=== PATIENT | male | born 1945 | race Caucasian/White ===

== ENCOUNTER 2018-06-23 09:00 | Outpatient (RCR) | payer MEDICARE, SELFPAY | END 2018-06-23 09:01 | disposition home or self-care (01) | LOC: PT 09:00 | PROVIDERS: Family Provider Internal Medicine Adolescent Medicine; PCP Internal Medicine Adolescent Medicine; Visit Provider Physician Assistant | DX: M54.12 Radiculopathy, cervical region (principal) | CPT/HCPCS: 97012; 97014; 97035; 97110; 97140; 97163; G0283 ==

== ENCOUNTER → 2018-07-10 10:42 | Outpatient (CLI) | payer MEDICARE, SELFPAY ==
--- NOTE | 2018-07-10 10:44 | MR_ITS ---
MR lumbar spine wo con, MR 3-d myelogram/MRCP HISTORY: LBP. Bilateral leg pain, numbness, tingling and weakness X 1 month. ITS.REASON: LUMBAGO WITH SCIATICA ORDERING PHYSICIAN: Magalis Negron PATIENT AGE: 73 years Comparison: None TECHNIQUE: Standard multiplanar multiecho sequences are performed without contrast. 3-D MIP and myelographic images are also rendered and reviewed FINDINGS: The spinal cord ends at the L1 level. T11-T12: Mild degenerative disc disease. T12-L1: Unremarkable. L1-L2: Mild concentric bulging disc with anterior endplate osteophytes and mild facet and ligamentum flavum hypertrophy with mild bilateral lateral recess and foraminal narrowing. L2-L3: Mild concentric bulging disc with effacement small right paracentral disc protrusion along with facet and ligamentum flavum hypertrophy with mild to moderate right lateral recess narrowing and mild left lateral recess narrowing along with mild bilateral foraminal narrowing slightly greater on the right. L3-L4: Degenerative disc disease with concentric bulging disc along with moderate to severe facet and ligamentum flavum hypertrophy with resultant canal stenosis. There is transverse narrowing of the canal measures approximately 6 mm in width. There is severe bilateral lateral recess narrowing and moderate to severe bilateral foraminal narrowing. Endplate irregularity involves the L3-L4 disc space with type I endplate changes along her aspect of L3 L4-L5: Concentric bulging disc along eccentric towards the right with facet and ligamentum flavum hypertrophy with moderate to severe right-sided lateral recess narrowing, mild left lateral recess narrowing and [id number] bilateral foraminal narrowing. L5-S1: Degenerative disc disease with mild retrolisthesis of L5 of 4 mm with bulging disc along with facet and ligamentum flavum hypertrophy with mild right foraminal narrowing and moderate to severe left foraminal narrowing. IMPRESSION: Abnormal MRI of the lumbar spine with multilevel degenerative disc disease with bulging disc along with facet and ligamentum flavum hypertrophy and varying levels of foraminal and lateral recess narrowing. This is most severe at the L3-L4 level where there is canal stenosis. Please see above for detailed description at each level No extruded herniated disc evident
== END ==
PROVIDERS: Family Provider Internal Medicine Adolescent Medicine; PCP Internal Medicine Adolescent Medicine; Visit Provider Nurse Practitioner Family
DX: M54.41 Lumbago with sciatica, right side (principal); M54.42 Lumbago with sciatica, left side
CPT/HCPCS: 72148; 76376

== ENCOUNTER 2018-09-26 08:24 | Outpatient (RCR) | payer MEDICARE, SELFPAY | END 2018-09-26 08:27 | disposition home or self-care (01) | LOC: PT 08:24 | PROVIDERS: Visit Provider Orthopaedic Surgery | DX: M25.511 Pain in right shoulder (principal); M75.111 Incomplete rotator cuff tear or rupture of right shoulder, not specified as traumatic; M75.51 Bursitis of right shoulder | CPT/HCPCS: 97014; 97035; 97163; G0283 ==

== ENCOUNTER → 2019-06-18 14:57 | Outpatient (CLI) | payer MEDICARE, SELFPAY ==
--- NOTE | 2019-06-18 15:02 | XR_ITS ---
PROCEDURE: XR ANKLE LT MIN 3V CLINICAL INDICATION: LT ANKLE PAIN COMPARISON: No exams were available for comparison FINDINGS: Bone density, joint spaces and alignment are normal. There is no acute fracture. There are vascular soft tissue calcifications. There is a 5 millimeter plantar calcaneal spur. IMPRESSION: No acute process. Calcaneal spur. Dictated by: Massimo Esteban 06/18/2019 15:16 Electronically signed by Massimo Esteban in [facility] 06/18/2019 15:16
--- NOTE | 2019-06-18 15:02 | XR_ITS ---
PROCEDURE: XR TIBIA FIBULA LT 2V CLINICAL INDICATION: LT ANKLE PAIN COMPARISON: No exams were available for comparison FINDINGS: Low-dose is normal without acute fracture. There is a curvilinear calcification adjacent to the lateral cortex of the fibular head. This is likely from ligament or tendon attachment. The cortex of the fibula is intact. IMPRESSION: No acute process. Dictated by: Massimo Esteban 06/18/2019 15:17 Electronically signed by Massimo Esteban in [facility] 06/18/2019 15:17
== END ==
PROVIDERS: PCP Internal Medicine Adolescent Medicine; Visit Provider Internal Medicine Adolescent Medicine
DX: M25.572 Pain in left ankle and joints of left foot (principal)
CPT/HCPCS: 73590; 73610

== ENCOUNTER 2019-10-07 10:37 | Observation (INO) ==
[2019-10-07 10:53] LABS: Basophils # 0.1 K/mm3 (0-0.2); Basophils % 0.4 % (0.1-2.0); Eosinophils % 15.3 % (0.1-12.0); Hematocrit 41.1 % (42.0-52.0); Hemoglobin 13.1 g/dL (14.1-18.0); Lymphocytes # 1.4 K/mm3 (0.7-4.5); Lymphocytes % 10.5 % (10-50); Mean Corpuscular HGB Conc 31.8 g/dL (31.8-35.4); Mean Corpuscular Volume 81.7 fl (80-94); Mean Platelet Volume 8.4 fl (7.4-10.4); Monocytes # 0.6 K/mm3 (0.1-1.0); Monocytes % 4.7 % (1.7-9.3); Neutrophils # 9.3 K/mm3 (1.8-7.8); Neutrophils % 69.2 % (37.0-80.0); Platelet Count 166 K/mm3 (142-424); Red Blood Count 5.03 M/mm3 (4.60-6.20); White Blood Count 13.4 K/mm3 (4.8-10.8)
--- NOTE | 2019-10-07 11:03 | Emergency Department Note ---
ED Disposition Clinical Impression: Acute exacerbation of chronic obstructive airways disease, Mild renal insufficiency, Bigeminy, First degree AV block Congestive heart failure (CHF) Qualifiers: Heart failure type: unspecified Heart failure chronicity: unspecified Qualified Code(s): I50.9 - Heart failure, unspecified Dyspnea Qualifiers: Dyspnea type: unspecified Qualified Code(s): R06.00 - Dyspnea, unspecified Disposition: Admitted as Observation Condition on Discharge: Fair (Stable) Referrals: Philip Velarde MD [Primary Care Provider] - Klever Rodas MD [Staff Physician] - Time of Disposition: 12:22 - Critical Care Critical Care Time: No Attestation: On 10/07/19, the high probability of a clinically significant, sudden or life threatening deterioration of the following system(s) required my full and direct attention, intervention and personal management. The time I documented below is in addition to time spent performing reported procedures but includes the following listed in this critical care notation. Medical Decision Making - Medical Records Medical records reviewed: Yes: I reviewed the patient's medical records. - Benja Inquiry Pt receiving controlled substance: No Benja was queried for this patient: No Vital Signs: 10/07/19 10:37 10/07/19 10:41 10/07/19 10:55 Temperature 98.4 F Temperature Source Oral Pulse Rate 93 H Pulse Rate [Right] 90 Respiratory Rate 20 Blood Pressure [Right Arm] 157/81 H Blood Pressure Mean [Right Arm] 106 Blood Pressure Source [Right Arm] Blood Pressure Position [Right Arm] 02 Sat by Pulse Oximetry 93 L Oxygen Delivery Method Room Air 10/07/19 11:07 10/07/19 11:33 10/07/19 12:00 Temperature Temperature Source Pulse Rate Pulse Rate [Right] 87 87 84 Respiratory Rate 20 20 Blood Pressure [Right Arm] 138/65 124/69 115/54 L Blood Pressure Mean [Right Arm] 89 87 74 Blood Pressure Source [Right Arm] Automatic Cuff Automatic Cuff Automatic Cuff Blood Pressure Position [Right Arm] Supine Sitting Supine 02 Sat by Pulse Oximetry 95 92 L 95 Oxygen Delivery Method Room Air Room Air Room Air 10/07/19 12:22 Temperature Temperature Source Pulse Rate Pulse Rate [Right] 88 Respiratory Rate Blood Pressure [Right Arm] 175/78 H Blood Pressure Mean [Right Arm] 110 Blood Pressure Source [Right Arm] Automatic Cuff Blood Pressure Position [Right Arm] Sitting 02 Sat by Pulse Oximetry 94 L Oxygen Delivery Method - Lab Data Lab Results 10/07/19 10:40: WBC 13.4 H, RBC 5.03, Hgb 13.1 L, Hct 41.1 L, MCV 81.7, MCH 26.0 L, MCHC 31.8, RDW 16.0, Plt Count 166, MPV 8.4, Neut % (Auto) 69.2, Lymph % (Auto) 10.5, [place] % (Auto) 4.7, Eos % (Auto) 15.3 H, Baso % (Auto) 0.4, Neut # (Auto) 9.3 H, Lymph # (Auto) 1.4, [place] # (Auto) 0.6, Eos # (Auto) 2.0 H, Baso # (Auto) 0.1 10/07/19 10:40: Sodium 139, Potassium 4.7, Chloride 101, Carbon Dioxide 24, Anion Gap 18.7 H, BUN 24 H, Creatinine 1.61 H, Estimated Creat Clear 56, Estimated GFR 42 L, Est GFR ( Amer) 51 L, Glucose 224 H, Calcium 8.7, Troponin I < 0.02 10/07/19 10:40: Total Bilirubin 1.9 H, Direct Bilirubin 0.3 H, Indirect Bilirubin 1.6 H, AST 8 L, ALT 16, Alkaline Phosphatase 53, Total Protein 6.8, Albumin 3.3 L 10/07/19 10:40: B-Natriuretic Peptide 539 H 10/07/19 10:40: Magnesium 2.0, TSH 1.33 Result diagrams: 10/07/19 10:40 10/07/19 10:40 Orders (Tests/Meds): ED MEDICATIONS Generic Name Dose Route Start Last Admin Trade Name Freq PRN Reason Stop Dose Admin Acetaminophen 650 mg 10/07/19 12:26 Acetaminophen 325mg Tab PO 11/06/19 12:25 Q4HP PRN As Needed for Fever or Pain Albuterol/Ipratropium 3 ml 10/07/19 12:30 Duoneb 3ml Neb IH 11/06/19 12:29 Q4H KALE Aspirin 81 mg 10/08/19 09:00 Aspirin 81mg Enteric Coated Tablet PO 11/07/19 08:59 DAILY KALE Carvedilol 12.5 mg 10/07/19 21:00 Coreg 25mg Tablet PO 11/06/19 20:59 BID [facility] Fluticasone Propionate 1 spr 10/07/19 21:00 Flonase 50mcg Nasal [place] 16gm NS 11/06/19 20:59 BID KALE Gabapentin 100 mg 10/07/19 13:00 Neurontin 100mg Capsule PO 11/06/19 12:59 TID KALE Levothyroxine Sodium 50 mcg 10/08/19 09:00 Synthroid 75mcg (0.075mg) Tablet PO 11/07/19 08:59 DAILY KALE Non-Formulary Medication 2 inh 10/08/19 09:00 Budesonide/Formoterol Fumarate [Symbicort 160-4.5 Mcg Inhaler] IH 11/07/19 08:59 DAILY KALE Non-Formulary Medication 1 tab 10/08/19 09:00 Dapagliflozin/Metformin Hcl [Xigduo Xr 10 Mg-1,000 Mg Tab] PO 11/07/19 08:59 DAILY KALE Non-Formulary Medication 75 mg 10/07/19 21:00 Diclofenac Sodium [Diclofenac 75mg Tab] PO 11/06/19 20:59 BID KALE Non-Formulary Medication 5 mg 10/08/19 09:00 Linagliptin [Tradjenta 5mg Tablet] PO 11/07/19 08:59 DAILY KALE Non-Formulary Medication 20 mg 10/08/19 09:00 Pantoprazole Sodium [Pantoprazole 20mg Tab] PO 11/07/19 08:59 DAILY KALE Non-Formulary Medication 1 inh 10/08/19 09:00 Umeclidinium [place] [Incruse Ellipta] 11/07/19 08:59 DAILY [facility] Ondansetron HCl 4 mg 10/07/19 12:26 Zofran 4mg/2ml Vial IV 11/06/19 12:25 Q8HP PRN Nausea Oxycodone/Acetaminophen 1 each 10/08/19 09:00 Percocet 10mg/325mg Tablet PO 11/07/19 08:59 DAILY KALE Discontinued Medications Generic Name Dose Route Start Last Admin Trade Name Freq PRN Reason Stop Dose Admin Albuterol/Ipratropium 3 ml 10/07/19 10:41 10/07/19 10:55 Duoneb 3ml Neb 10/07/19 10:42 3 ml ONCE ONE Administration Aspirin 324 mg 10/07/19 10:41 10/07/19 10:45 Aspirin 81mg Chewable Tablet PO 10/07/19 10:42 324 mg ONCE ONE Administration Furosemide 40 mg 10/07/19 11:28 10/07/19 11:31 Lasix 40mg/4ml Vial IV 10/07/19 11:29 40 mg ONCE ONE Administration Methylprednisolone Sodium Succinate 125 mg 10/07/19 10:41 10/07/19 10:46 Solu-Medrol 125mg/2ml Vial IV 10/07/19 10:42 125 mg ONCE ONE Administration Nitroglycerin 1 gm 10/07/19 11:28 10/07/19 11:31 Nitroglycerin 1 Inch Oint Udp TD 10/07/19 11:29 1 gm ONCE ONE Administration ORDERS Category Date Time Status XR chest portable Routine Exams 10/07/19 12:26 Ordered Basic Metabolic Panel AMLAB Lab 10/08/19 06:00 Ordered Complete Blood Count Auto Diff AMLAB Lab 10/08/19 06:00 Ordered Influenza A&B Antigens, Rapid [Rapid Influenza A&B Lab 10/07/19 12:30 Received Antigens] Stat Lipid Panel AMLAB Lab 10/08/19 06:00 Ordered Troponin I Q3H Lab 10/07/19 13:45 Ordered Troponin I Q3H Lab 10/07/19 16:45 Ordered - ECG Data Tracing #1 I reviewed this ECG and interpreted as documented below: (EKG at 10:36 shows sinus rhythm with 1st degree AV block at 92 BPM.) Medical Decision Narrative: 11:05 Pt evaluated. EKG reviewed. PCXR and cardiac labs ordered. DuoNeb ordered and given. 11:33 Chest x-ray reviewed which showed the patient to be developing congestive heart failure. I have ordered Lasix 40 mg IV push and 1 inch of nitroglycerin paste to anterior chest wall. I have discussed results of his labs, diagnosis and care plan with patient. I have paged Dr. Velarde and waiting for him to call back regarding admission. Pt also noted to have intermittent episodes of bigeminy. Added a TSH and magnesium to the patient's lab work-up at this time. 12:[address] Rodas youth probation officer for Dr. Velarde he is agreed to accept admission of this patient. He will follow-up with the patient later today and probably give the patient another dose of Lasix. He asked that I wr ite for strict I's and O's and did not want me to continue the nitroglycerin paste in light of his normal troponin at this time. I have discussed results of work-up, diagnosis and care plan with patient. He understands, agrees and all questions answered. Resp/SOB HPI - General Chief Complaint: Shortness of Breath/Dyspnea Stated Complaint: shortness of breath, chest tightness Time Seen by Provider: 10/07/19 11:00 Mode of Arrival: Ambulatory Source of Information: Patient Limitations: No Limitations Description of Symptoms (Recalled from ER Triage Doc. by RN): pt presents to ed with c/o shortness of breath and chest tightness. - History of Present Illness Patient is a 74-year-old male that presents here to the emergency room via private vehicle for evaluation complaining having shortness of breath. Patient states he has been having increasing dyspnea over the past 2 days. He has had a sensation of chest tightness over the past 2 days accompanied his dyspnea. Patient has had some wheezing. He has been using his home metered-dose inhalers as prescribed. Patient also states he is chronic bilateral shoulder pain. He does not have any pain into his neck back or upper extremities. No diaphoresis. No leg swelling. No recent travel or sitting for extended periods of time. - Related Data Home Medications Medication Instructions Recorded Confirmed Aspirin [Aspir 81] 81 mg PO DAILY 10/07/19 10/07/19 Budesonide/Formoterol Fumarate 2 inh IH DAILY 10/07/19 10/07/19 [Symbicort 160-4.5 Mcg Inhaler] Dapagliflozin/Metformin HCl 1 tab PO DAILY 10/07/19 10/07/19 [Xigduo Xr 10 mg-1,000 mg Tab] Diclofenac Sodium [Diclofenac 75mg 75 mg PO BID 10/07/19 10/07/19 Tab] Fluticasone Propionate 1 spray IH BID 10/07/19 10/07/19 Gabapentin [Gabapentin 100mg Cap] 100 mg PO TID 10/07/19 10/07/19 Levothyroxine Sodium 50 mcg PO DAILY 10/07/19 10/07/19 [Levothyroxine 75mcg (0.075mg) Tab] Linagliptin [Tradjenta 5mg tablet] 5 mg PO DAILY 10/07/19 10/07/19 Oxycodone HCl/Acetaminophen 1 tab PO DAILY 10/07/19 10/07/19 [Oxycodone W/Apap 325mg Tablet] Pantoprazole Sodium [Pantoprazole 20 mg PO DAILY 10/07/19 10/07/19 20mg Tab] Umeclidinium [place] [Incruse 1 inh IH DAILY 10/07/19 10/07/19 Ellipta] carvediloL [Carvedilol 25mg Tab] 12.5 mg PO BID 10/07/19 10/07/19 Allergies Allergy/AdvReac Type Severity Reaction Status Date / Time No Known Allergies Allergy Verified 10/07/19 10:[address] [facility] History - Hepatitis A Screen Drug use history?: No High risk sexual behaviors?: No History of sexually transmitted infection?: No Currently employed?: No Childcare worker?: No Do you have indoor plumbing?: Yes Do you have electricity?: Yes Attestation statement:: This patient has been screened for Hepatitis A risk factors. I have reviewed the patient's past medical history: Yes Medical History: Reports:: Diabetes Mellitus Type 2 Denies:: Diabetes Mellitus Type 1 - Social History Smoking Status: Former smoker Alcohol Intake: never Occupational Status: retired ROS Obtained: Yes All systems reviewed & no additional complaints - Constitutional Constitutional: Reports system reviewed and no additional complaints, except as docu - Eyes Eyes: Reports system reviewed and no additional complaints, except as docu - ENT Ears, Nose, Mouth, and Throat: Reports system reviewed and no additional compl aints, except as docu - Cardiovascular Cardiovascular: Reports system reviewed and no additional complaints, except as docu, Reports as per HPI, Reports dyspnea, Reports other (chest tightness) - Respiratory Respiratory: Yes system reviewed and no additional complaints, except as docu, Yes as per HPI, Yes dyspnea, Yes wheezing - Gastrointestinal Gastrointestingal: Reports: system reviewed and no additional complaints, except as docu - Genitourinary Male Genitourinary: Reports system reviewed and no additional complaints, except as docu - Musculoskeletal Musculoskeletal: Reports system reviewed and no additional complaints, except as docu - Integumentary/Breasts Skin/Breast: Reports system reviewed and no additional complaints, except as docu - Neurologic Neurologic: Reports system reviewed and no additional complaints, except as docu - Endocrine Endocrine: Reports system reviewed and no additional complaints, except as docu - Hematologic/Lymphatic Henatologic/Lymphatic: Reports system reviewed and no additional complaints, except as docu - Allergic/Immunologic Allergic/Immunologic: Reports system reviewed and no additional complaints, except as docu Physical Exam - General General appearance: alert, in no apparent distress - Head Head exam: atraumatic, normocephalic, normal inspection - Eye Eye exam: Present: normal appearance, PERRL, EOMI - ENT ENT exam: Present: mucous membranes moist, other (No otic or nasal discharge) - Neck Neck exam: Present: trachea midline - Chest Chest inspection: Present: normal inspection, symmetric chest wall rise - Respiratory Respiratory exam: Present: normal lung sounds bilaterally, wheezes (Initially had end-expiratory wheezing pre-neb. CTA bilaterally post neb.). Absent: respiratory distress - Cardiovascular Cardiovascular exam: Present: regular rate, normal heart sounds - Abdominal Exam Abdominal exam: Present: soft, normal bowel sounds. Absent: distention, tend erness, guarding, rebound, rigidity - Extremities Exam Extremities exam: Present: normal inspection, full ROM. Absent: pedal edema - Neurological Exam Neurological exam: Present: alert, oriented X3, CN II-XII intact - Psychiatric Psychiatric exam: Present: normal affect, normal mood - Skin Skin exam: Present: warm, dry, intact. Absent: rash
[2019-10-07 11:10] LABS: Anion Gap 18.7 mEq/L (5-15); Blood Urea Nitrogen 24 mg/dL (7-18); Calcium 8.7 mg/dL (8.5-10.1); Carbon Dioxide 24 mmol/L (21.0-32.0); Chloride 101 mmol/L (98-107); Glucose 224 mg/dL (74-106); Sodium 139 mmol/L (136-145)
[2019-10-07 12:03] LABS: Albumin Level 3.3 gm/dL (3.4-5.0); Bilirubin,Direct 0.3 mg/dL (0.0-0.2); Bilirubin,Indirect 1.6 mg/dL (0.0-0.9); Bilirubin,Total 1.9 mg/dL (0.2-1.0); Total Protein,Serum 6.8 gm/dL (6.4-8.2)
[2019-10-07 12:05] LABS: Thyroid Stimulating Hormone 1.33 uIU/ml (0.358-3.740)
--- NOTE | 2019-10-07 13:19 | History & Physical Report ---
*Admission Date: 10/07/19 *Chief complaint: SOA *History of present illness: Mr. Sparks is a 74-year-old gentleman with history of COPD, hypertension, chronic shoulder pain, aortic valve replacement a decade ago who presented to the ER due to worsening shortness of breath over the past 2 days. He presented with his and they report that he has been having increasing dyspnea over the past 2 days, denies orthopnea however. Does not report significant upper respiratory symptoms. He has had a sensation of chest tightness over the past 2 days accompanied his dyspnea. Patient has had some wheezing. Reports has been using his inhaler at home but this has not helped significantly. Upon presentation to the ER he was given a nebulizer treatment with no significant improvement. Labs and chest imaging were obtained showing elevated BNP, and cephalization of the pulmonary vasculature on chest x-ray. Additionally he was found to have mild GERARDO with creatinine 1.6, above baseline of 1.3. No diaphoresis, leg swelling, No recent travel or sitting for extended periods of time. In the ER was swabbed for flu, negative. On interview once he got to the floor, patient has only put out about 375 cc after his first dose of Lasix. Still short of breath but improvement in wheezing. Denies any syncope, chest pain. Has a ap operator in [place] and is adamant that if he needs any type of intervention he prefers to be under their care. [facility] History I have reviewed the patient's past medical history: Yes Medical History: Reports:: Diabetes Mellitus Type 2 Denies:: Cancer, Diabetes Mellitus Type 1, Internal Pacemaker, MRSA *Have you ever received a pneumonia vaccine?: No *Have you received a flu vaccine this season?: Yes Other Surgeries: Yes: Other Valve Replacement (Aortic valve replacement 2009). No: Pacemaker Amputation: No - *Social History Educational Level: Attended High School Smoking Status: Former smoker # Packs/Day (cigarettes): 1 Smoking End Date: 1989 Alcohol Intake: never *Occupational Status:: retired Housing: house Household Members: spouse *Travel in the last 8 weeks: None Family Hx:: No significant family history Review of Systems - Review of Systems Review of systems:: pertinent systems reviewed and negative unless documented below (14 point review of systems performed, pertinent negatives and positives as listed in HPI) Meds Home Medications Medication Instructions Recorded Confirmed Type Aspirin [Aspir 81] 81 mg PO DAILY 10/07/19 10/07/19 History Budesonide/Formoterol Fumarate 2 inh IH DAILY 10/07/19 10/07/19 History [Symbicort 160-4.5 Mcg Inhaler] Dapagliflozin/Metformin HCl 1 tab PO DAILY 10/07/19 10/07/19 History [Xigduo Xr 10 mg-1,000 mg Tab] Diclofenac Sodium [Diclofenac 75mg 75 mg PO BID 10/07/19 10/07/19 History Tab] Fluticasone Propionate 1 spray IH BID 10/07/19 10/07/19 History Gabapentin [Gabapentin 100mg Cap] 100 mg PO TID 10/07/19 10/07/19 History Levothyroxine Sodium 50 mcg PO DAILY 10/07/19 10/07/19 History [Levothyroxine 75mcg (0.075mg) Tab] Linagliptin [Tradjenta 5mg tablet] 5 mg PO DAILY 10/07/19 10/07/19 History Oxycodone HCl/Acetaminophen 1 tab PO DAILY 10/07/19 10/07/19 History [Oxycodone W/Apap 325mg Tablet] Pantoprazole Sodium [Pantoprazole 20 mg PO DAILY 10/07/19 10/07/19 History 20mg Tab] Umeclidinium [place] [Incruse 1 inh IH DAILY 10/07/19 10/07/19 History Ellipta] carvediloL [Carvedilol 25mg Tab] 12.5 mg PO BID 10/07/19 10/07/19 History Allergies Allergy/AdvReac Type Severity Reaction Status Date / Time No Known Allergies Allergy Verified 10/07/19 10:40 Exam Vital signs and Labs for Last 24 Hours: Temp Pulse Resp BP Pulse Ox 97.7 F 82 20 141/74 H 95 10/07/19 13:07 10/07/19 13:07 10/07/19 13:07 10/07/19 13:07 10/07/19 13:07 Laboratory Results - last 24 hr 10/07/19 10:40: WBC 13.4 H, RBC 5.03, Hgb 13.1 L, Hct 41.1 L, MCV 81.7, MCH 26.0 L, MCHC 31.8, RDW 16.0, Plt Count 166, MPV 8.4, Neut % (Auto) 69.2, Lymph % (Auto) 10.5, [place] % (Auto) 4.7, Eos % (Auto) 15.3 H, Baso % (Auto) 0.4, Neut # (Auto) 9.3 H, Lymph # (Auto) 1.4, [place] # (Auto) 0.6, Eos # (Auto) 2.0 H, Baso # (Auto) 0.1 10/07/19 10:40: Sodium 139, Potassium 4.7, Chloride 101, Carbon Dioxide 24, Anion Gap 18.7 H, BUN 24 H, Creatinine 1.61 H, Estimated Creat Clear 56, Estimated GFR 42 L, Est GFR ( Amer) 51 L, Glucose 224 H, Calcium 8.7, Troponin I < 0.02 10/07/19 10:40: Total Bilirubin 1.9 H, Direct Bilirubin 0.3 H, Indirect Bilirubin 1.6 H, AST 8 L, ALT 16, Alkaline Phosphatase 53, Total Protein 6.8, Albumin 3.3 L 10/07/19 10:40: B-Natriuretic Peptide 539 H 10/07/19 10:40: Magnesium 2.0, TSH 1.33 10/07/19 12:30: Influenza Type A Ag Negative, Influenza Type B Ag Negative I & O for Last 24 hours: Intake & Output 10/04/19 10/05/19 10/06/19 10/07/19 23:59 23:59 23:59 23:59 Weight 87.572 kg - Constitutional mild distress, average body habitus - *Routine HEENT Exam Head: Present: normocephalic Eye: Present: EOMI, PERRL ENT: Present: mucous membranes moist - *Routine Neck Exam Present: supple, JVD. Absent: lymphadenopathy - *Routine Respiratory Exam Present: CTA bilaterally, prolonged expiratory phase, rhonchi (Intermittent, clear with cough). Absent: wheezes - *Routine Cardiovascular Exam Absent: murmur Comments: Arrhythmia on exam, bigeminy on telemetry - *Routine Abdominal Exam Present: soft, normoactive bowel sounds. Absent: tenderness - *Routine Extremities Exam Absent: cyanosis, clubbing, edema - *Routine Skin Exam Present: warm. Absent: rash - *Routine Neurological Exam Present: alert, oriented X3 - Routine Psychiatric Exam Present: normal affect, cooperative Assessment and Plan (1) Congestive heart failure (CHF) Current visit: Yes Status: Acute Qualifiers: Heart failure type: unspecified Heart failure chronicity: unspecified Qualified Code(s): I50.9 - Heart failure, unspecified Category: Medical Code(s): I50.9 - Heart failure, unspecified Cannot find history of echocardiogram however patient reports has had one obtained but is been many many years. Will obtain another echo in the morning to assess for diastolic vs systolic vs combined CHF. Cardiology consulted as we ll, appreciate recommendations. (2) Dyspnea Current visit: Yes Status: Acute Qualifiers: Dyspnea type: unspecified Qualified Code(s): R06.00 - Dyspnea, unspecified Category: Medical Code(s): R06.00 - Dyspnea, unspecified (3) Mild renal insufficiency Current visit: Yes Status: Acute Category: Medical Code(s): N28.9 - Disorder of kidney and ureter, unspecified Baseline creatinine 1.3, will monitor for improvement with diuresis. Repeat labs this evening and in the morning (4) COPD (chronic obstructive pulmonary disease) Current visit: Yes Status: Chronic Qualifiers: Chronic bronchitis type: simple Category: Medical Code(s): J44.9 - Chronic obstructive pulmonary disease, unspecified Continue home inhalers, nebs every 6 as needed (5) Bigeminy Current visit: Yes Status: Chronic Category: Medical Code(s): I49.9 - Cardiac arrhythmia, unspecified Continue beta-sabrina. - Assessment and plan all Dx Assessment and Plan for all problems:: 74-year-old gentleman who presents with 2 days of worsening dyspnea. Imaging and labs suggestive of CHF exacerbation. No overt signs of infection even in the setting of mild leukocytosis. Will hold on empiric antibiotics at this time. Continue treatment for COPD. Diuresis as discussed above. Will monitor kidney function, electrolytes, fluid status and for improvement with diuresis. Cardiology consulted, will see patient in the morning. Appreciate their recommendations. Echo pending in the morning. Patient full code, diabetic diet. Sliding scale insulin for diabetes. Will observe overnight and assess for response to treatment.
--- NOTE | 2019-10-07 14:25 | Pharmacy Consult Notes ---
[facility] Pharmacy VTE Monitoring - Patient Demographics Admission date: 10/07/19 Report Date: 10/07/19 Time: 14:25 Allergies/Adverse Reactions: Patient Allergies No Known Allergies Allergy (Verified 10/07/19 10:40) Height: 1.88 m Weight: 87.572 kg Patient Problems: Current Active Problems Congestive heart failure (CHF) (Acute) Dyspnea (Acute) Acute exacerbation of chronic obstructive airways disease (Acute) Mild renal insufficiency (Acute) Bigeminy (Acute) First degree AV block (Acute) - VTE Risk Labs: VTE Related Lab Results Hgb 13.1 g/dL (14.1-18.0) L 10/07/19 10:40 Hct 41.1 % (42.0-52.0) L 10/07/19 10:40 Plt Count 166 K/mm3 (142-424) 10/07/19 10:40 BUN 24 mg/dL (7-18) H 10/07/19 10:40 Creatinine 1.61 mg/dL (0.70-1.30) H 10/07/19 10:40 Estimated Creat Clear 56 mL/min (50-200) 10/07/19 10:40 Was VTE Risk Assessment Performed: Yes VTE Score: 4 VTE Risk Level: Low Risk - Prophylaxis VTE Prophylaxis Ordered?: Yes Types of VTE Prophylaxis: TEDS Knee High Location of Applied Device: Bilateral Lower Extremeties, Not Applicable
[2019-10-08 00:17] LABS: Anion Gap 15.9 mEq/L (5-15)
[2019-10-08 06:19] LABS: Basophils % 0.3 % (0.1-2.0); Eosinophils # 0.5 K/mm3 (0.0-0.4); Eosinophils % 3.8 % (0.1-12.0); Hematocrit 40.4 % (42.0-52.0); Hemoglobin 12.8 g/dL (14.1-18.0); Lymphocytes # 2.5 K/mm3 (0.7-4.5); Lymphocytes % 18.6 % (10-50); Mean Corpuscular HGB Conc 31.6 g/dL (31.8-35.4); Mean Corpuscular Volume 80.9 fl (80-94); Mean Platelet Volume 8.9 fl (7.4-10.4); Monocytes # 0.7 K/mm3 (0.1-1.0); Monocytes % 5.6 % (1.7-9.3); Neutrophils # 9.6 K/mm3 (1.8-7.8); Neutrophils % 71.7 % (37.0-80.0); Platelet Count 176 K/mm3 (142-424); Red Cell Distribution Width 15.9 % (11.5-17.5); White Blood Count 13.4 K/mm3 (4.8-10.8)
[2019-10-08 06:32] LABS: Calcium 9.1 mg/dL (8.5-10.1); Chol/HDL Ratio 3.3 (1-3.5)
--- NOTE | 2019-10-08 08:53 | Discharge Summary ---
General - General Admission date:: 10/07/19 Discharge date: 10/08/19 HPI HPI: Mr. Sparks is a 74-year-old gentleman with history of COPD, hypertension, chronic shoulder pain, aortic valve replacement a decade ago who presented to the ER due to worsening shortness of breath over the past 2 days. He presented with his and they report that he has been having increasing dyspnea over the past 2 days, denies orthopnea however. Does not report significant upper respiratory symptoms. He has had a sensation of chest tightness over the past 2 days accompanied his dyspnea. Patient has had some wheezing. Reports has been using his inhaler at home but this has not helped significantly. Upon presentation to the ER he was given a nebulizer treatment with no significant improvement. Labs and chest imaging were obtained showing elevated BNP, and cephalization of the pulmonary vasculature on chest x-ray. Additionally he was found to have mild GERARDO with creatinine 1.6, above baseline of 1.3. No diaphoresis, leg swelling, No recent travel or sitting for extended periods of time. In the ER was swabbed for flu, negative. On interview once he got to the floor, patient has only put out about 375 cc after his first dose of Lasix. Still short of breath but improvement in wheezing. Denies any syncope, chest pain. Has a lead applications developer in [place] and is adamant that if he needs any type of intervention he prefers to be under their care. Hospital Course Hospital Course: Patient was admitted to hospital and received a dose of IV Lasix on admission. He did well with this and had quite a bit of urine output. He felt much better. This morning he feels much better, denies shortness of air and is ambulating in the hallways very nicely. Preliminary echo report showed that his porcine valve is functioning very nicely and his ejection fraction is 55% with no significant wall motion abnormalities on preliminary review. Unfortunately patient's acute kidney injury has worsened slightly with creat inine rising from 2.6 up to 2.3 and then this morning plateauing somewhat at 2.5. Patient reports that he feels well, no nausea, and has had good urine output this morning. He reports that he is drinking well and had coffee and orange juice and water for breakfast without nausea. Patient wishes to be discharged and have outpatient follow-up which I think is reasonable given his close proximity to the hospital and his good functional status. Electrolytes are also normal. Plan will be to discharge patient today. No additional medications-I had considered adding diuretics but patient may have had a viral bronchitis rather than an actual CHF exacerbation given his fluid status this morning. I have asked patient to hold his diclofenac and he will come back tomorrow for a basic metabolic panel and CBC. I will then see him in the office on Tuesday and review these tests. Objective Vital signs: Temp Pulse Resp BP Pulse Ox 98.7 F 67 20 133/45 L 93 L 10/08/19 08:00 10/08/19 08:00 10/08/19 08:00 10/08/19 08:00 10/08/19 08:00 Narrative: Pleasant, alert, oriented x3. No peripheral edema. No JVD. No scleral icterus or jaundice. Lungs are clear bilaterally. Heart rate regular with rare ectopic beat. Previously noted holosystolic murmur is unchanged. Abdomen soft and nontender. No skin turgor problems. Neurologically intact and alert. Results Labs on day of discharge: Labs from last 24 hours 10/08/19 10/08/19 10/08/19 05:57 05:55 05:55 WBC 13.4 H RBC 5.00 Hgb 12.8 L Hct 40.4 L MCV 80.9 MCH 25.5 L MCHC 31.6 L RDW 15.9 Plt Count 176 MPV 8.9 Neut % (Auto) 71.7 Lymph % (Auto) 18.6 Guadalupe % (Auto) 5.6 Eos % (Auto) 3.8 Baso % (Auto) 0.3 Neut # (Auto) 9.6 H Lymph # (Auto) 2.5 [place]upe # (Auto) 0.7 Eos # (Auto) 0.5 H Baso # (Auto) 0.0 Sodium 136 Potassium 4.0 Chloride 99 Carbon Dioxide 26 Anion Gap 15.0 BUN 46 H Creatinine 2.53 H Estimated Creat Clear 31 Estimated GFR 25 L Est GFR ( Amer) 30 L Glucose 200 H POC Glucose 199 H Calcium 9.1 Magnesium Total Bilirubin Direct Bilirubin Indirect Bilirubin AST ALT Alkaline Phosphatase Troponin I B-Natriuretic Peptide Total Protein Albumin Triglycerides 89 Cholesterol 139 L LDL Cholesterol 79 VLDL Cholesterol 18 HDL Cholesterol 42 Cholesterol/HDL Ratio 3.3 TSH Influenza Type A Ag Influenza Type B Ag 10/07/19 10/07/1920 23:59 21:25 16:12 WBC RBC Hgb Hct MCV MCH MCHC RDW Plt Count MPV Neut % (Auto) Lymph % (Auto) Gu[place]upe % (Auto) Eos % (Auto) Baso % (Auto) Neut # (Auto) Lymph # (Auto) [place]upe # (Auto) Eos # (Auto) Baso # (Auto) Sodium 136 Potassium 3.9 Chloride 99 Carbon Dioxide 25 Anion Gap 15.9 H BUN 40 H D Creatinine 2.31 H D Estimated Creat Clear 34 Estimated GFR 28 L Est GFR ( Amer) 34 L D Glucose 226 H POC Glucose 316 H* 398 H* Calcium 9.0 Magnesium Total Bilirubin Direct Bilirubin Indirect Bilirubin AST ALT Alkaline Phosphatase Troponin I B-Natriuretic Peptide Total Protein Albumin Triglycerides Cholesterol LDL Cholesterol VLDL Cholesterol HDL Cholesterol Cholesterol/HDL Ratio TSH Influenza Type A Ag Influenza Type B Ag 10/07/19 10/07/19 10/07/19 13:45 12:30 10:40 WBC RBC Hgb Hct MCV MCH MCHC RDW Plt Count MPV Neut % (Auto) Lymph % (Auto) Gu[place]upe % (Auto) Eos % (Auto) Baso % (Auto) Neut # (Auto) Lymph # (Auto) [place]upe # (Auto) Eos # (Auto) Baso # (Auto) Sodium Potassium Chloride Carbon Dioxide Anion Gap BUN Creatinine Estimated Creat Clear Estimated GFR Est GFR ( Amer) Glucose POC Glucose Calcium Magnesium 2.0 Total Bilirubin Direct Bilirubin Indirect Bilirubin AST ALT Alkaline Phosphatase Troponin I < 0.02 B-Natriuretic Peptide Total Protein Albumin Triglycerides Cholesterol LDL Cholesterol VLDL Cholesterol HDL Cholesterol Cholesterol/HDL Ratio TSH 1.33 Influenza Type A Ag Negative Influenza Type B Ag Negative 10/07/19 10/07/19 10/07/19 10:40 10:40 10:40 WBC RBC Hgb Hct MCV MCH MCHC RDW Plt Count MPV Neut % (Auto) Lymph % (Auto) [place]upe % (Auto) Eos % (Auto) Baso % (Auto) Neut # (Auto) Lymph # (Auto) [place]upe # (Auto) Eos # (Auto) Baso # (Auto) Sodium 139 Potassium 4.7 Chloride 101 Carbon Dioxide 24 Anion Gap 18.7 H BUN 24 H Creatinine 1.61 H Estimated Creat Clear 56 Estimated GFR 42 L Est GFR ( Amer) 51 L Glucose 224 H POC Glucose Calcium 8.7 Magnesium Total Bilirubin 1.9 H Direct Bilirubin 0.3 H Indirect Bilirubin 1.6 H AST 8 L ALT 16 Alkaline Phosphatase 53 Troponin I < 0.02 B-Natriuretic Peptide 539 H Total Protein 6.8 Albumin 3.3 L Triglycerides Cholesterol LDL Cholesterol VLDL Cholesterol HDL Cholesterol Cholesterol/HDL Ratio TSH Influenza Type A Ag Influenza Type B Ag 10/07/19 10:40 WBC 13.4 H RBC 5.03 Hgb 13.1 L Hct 41.1 L MCV 81.7 MCH 26.0 L MCHC 31.8 RDW 16.0 Plt Count 166 MPV 8.4 Neut % (Auto) 69.2 Lymph % (Auto) 10.5 Gu[place]upe % (Auto) 4.7 Eos % (Auto) 15.3 H Baso % (Auto) 0.4 Neut # (Auto) 9.3 H Lymph # (Auto) 1.4 [place]upe # (Auto) 0.6 Eos # (Auto) 2.0 H Baso # (Auto) 0.1 Sodium Potassium Chloride Carbon Dioxide Anion Gap BUN Creatinine Estimated Creat Clear Estimated GFR Est GFR ( Amer) Glucose POC Glucose Calcium Magnesium Total Bilirubin Direct Bilirubin Indirect Bilirubin AST ALT Alkaline Phosphatase Troponin I B-Natriuretic Peptide Total Protein Albumin Triglycerides Cholesterol LDL Cholesterol VLDL Cholesterol HDL Cholesterol Cholesterol/HDL Ratio TSH Influenza Type A Ag Influenza Type B Ag DS: Diagnosis - Discharge Diagnosis (1) Congestive heart failure (CHF) Status: Chronic (2) Dyspnea Status: Resolved (3) Mild renal insufficiency Status: Acute (4) COPD (chronic obstructive pulmonary disease) Status: Chronic (5) Bigeminy Status: Chronic Discharge Plan - Patient Discharge Instructions ACTIVITY: Continue current activity DIET: continue same diet - Follow up Plan Follow up with: Philip Velarde MD [Primary Care Provider] - 10/10/19 10:15 am Disposition: Home, Self-Correction Medications: Home Medications Medication Instructions Recorded Confirmed Type Aspirin [Aspir 81] 81 mg PO DAILY 10/07/19 10/07/19 History Budesonide/Formoterol Fumarate 2 inh IH DAILY 10/07/19 10/07/19 History [Symbicort 160-4.5 Mcg Inhaler] Dapagliflozin/Metformin HCl 1 tab PO DAILY 10/07/19 10/07/19 History [Xigduo Xr 10 mg-1,000 mg Tab] Diclofenac Sodium [Diclofenac 75mg 75 mg PO BID 10/07/19 10/07/19 History Tab] Fluticasone Propionate 2 spray IH DAILY 10/07/19 10/07/19 History Gabapentin [Gabapentin 100mg Cap] 100 mg PO TID 10/07/19 10/07/19 History Levothyroxine Sodium 50 mcg PO DAILY 10/07/19 10/07/19 History [Levothyroxine 75mcg (0.075mg) Tab] Linagliptin [Tradjenta 5mg tablet] 5 mg PO DAILY 10/07/19 10/07/19 History Oxycodone HCl/Acetaminophen 1 tab PO DAILY 10/07/19 10/07/19 History [Oxycodone W/Apap 325mg Tablet] Pantoprazole Sodium [Pantoprazole 40 mg PO DAILY 10/07/19 10/07/19 History 20mg Tab] Umeclidinium [place] [Incruse 1 inh IH DAILY 10/07/19 10/07/19 History Ellipta] carvediloL [Carvedilol 25mg Tab] 12.5 mg PO BID 10/07/19 10/07/19 History Prescriptions/Medication Reconciliation: Continued Pantoprazole Sodium [Pantoprazole 20mg Tab] 40 mg PO DAILY Linagliptin [Tradjenta 5mg tablet] 5 mg PO DAILY Levothyroxine Sodium [Levothyroxine 75mcg (0.075mg) Tab] 50 mcg PO DAILY carvediloL [Carvedilol 25mg Tab] 12.5 mg PO BID Gabapentin [Gabapentin 100mg Cap] 100 mg PO TID Fluticasone Propionate 2 spray IH DAILY Oxycodone HCl/Acetaminophen [Oxycodone W/Apap 325mg Tablet] 1 tab PO DAILY Budesonide/Formoterol Fumarate [Symbicort 160-4.5 Mcg Inhaler] 2 inh IH DAILY Umeclidinium [place] [Incruse Ellipta] 1 inh IH DAILY Dapagliflozin/Metformin HCl [Xigduo Xr 10 mg-1,000 mg Tab] 1 tab PO DAILY Aspirin [Aspir 81] 81 mg PO DAILY Discontinued Diclofenac Sodium [Diclofenac 75mg Tab] 75 mg PO BID Other Amb Orders: B-Type Natriuretic Peptide Time Frame: 10/09/19, Location: None Selected Basic Metabolic Panel Time Frame: 10/09/19, Location: None Selected Complete Blood Count Auto Diff Time Frame: 10/09/19, Location: None Selected - Problem Reconciliation Problems Reviewed?: Yes
--- NOTE | 2019-10-08 12:54 | Electrocardiograph Report ---
APPROVED REPORT Exam: Resting ECG HR:92 bpm ECG Measurements Heart Rate 92 AXES PA 214 P 69 QRSd 86 QRS 21 QT 342 T71 QTc 422 <Conclusion> Sinus rhythm with 1st degree AV block Otherwise normal ECG Electronically signed by : Gerardo Arboleda, 10/08/2019 12:54:03
--- NOTE | 2019-10-08 18:49 | Cardiology Report ---
APPROVED REPORT EXAM: Comprehensive 2D, Doppler, and color-flow Echocardiogram Seal Mixer: Gardenia Erazo CRT Ht: 6 ft 2 in Wt: 193lbs BSA: 2.14 BP: 141/74 mmHg Indications: Prosthetic aortic porcine Valve, Arrhythmia, Congestive Heart Failure, Shortness of Breath, CAD 2D Dimensions LVOT 1.91 cm (M/F) 1.5-2.5 M-Mode Dimensions RVDd 2.84 cm (0.9-2.6)LVDd 4.81 cm (3.5-5.7) LVDs 3.44 cm (3.5-5.7)IVSd 1.36 cm (0.6-1.1) PWd 0.84 cm (0.6-1.1)EF (Teich) 54.80% FS 28.50% EDV (Teich) 108.00 mL ESV (Teich) 48.80 mL LV Diastology E/A Ratio 0.50 Aortic Valve LVOT Max 94.00 (70-110 cm/s)LVOT VTI 18.55 cm Mitral Valve MV A Velocity 102.00 (40-130 cm/s) Left Ventricle Left atrium is moderately enlarged, left ventricle is normal size, mild concentric left ventricular hypertrophy, visually estimated ejection fraction 55% with no regional wall motion abnormality. Grade 1 diastolic dysfunction seen with tissue Doppler evidence of raise left atrial pressure. Right Ventricle Right atrium right ventricular normal size and contractility. Aortic Valve There is a bioprosthetic valve noted in the aortic position, the valve is well-seated, there is no aortic outflow obstruction or aortic insufficiency. Mitral Valve Mitral valve has mitral calcification, there is prolapse of the posterior mitral leaflet, there is no mitral stenosis, there is mitral regurgitation present which is difficult to quantify, if clinically indicated a transesophageal echocardiogram is recommended. Tricuspid Valve Tricuspid valve is grossly normal, there is mild tricuspid regurgitation. Tricuspid regurgitation jet velocity is inadequate for calculation of the right ventricular systolic pressure. Pulmonic Valve Pulmonic valve is poorly visualized. There is moderate pulmonic insufficiency. Great Vessels Aortic root is normal size. Pericardium No significant pericardial effusion noted. Conclusion 1. Moderately enlarged left atrium, normal left ventricular size, mild concentric left ventricular hypertrophy, visually estimated ejection fraction of 55% with no regional wall motion abnormality, grade 1 diastolic dysfunction seen with tissue Doppler evidence of raise left atrial pressure. 2. Normal functioning bioprosthetic valve in the aortic position. 3. Abnormal mitral valve as described above, there is no mitral stenosis, there is mitral regurgitation present which is difficult to quantify, if clinically indicated a transesophageal echocardiogram is recommended. 4. Mild tricuspid regurgitation. 5. No significant pericardial effusion noted. Electronically signed by : Mil Ross, 10/08/2019 18:48:28
== END 2019-10-08 10:00 | disposition home or self-care (01) ==
LOC: 2ND 10:37 → ER 10:37 → 2ND 12:55
PROVIDERS: ADMIT Internal Medicine Adolescent Medicine; ATTEND Internal Medicine Adolescent Medicine
CPT/HCPCS: 36415; 71020; 71046; 80048; 80061; 80076; 82962; 83735; 83880; 84443; 84484; 85025; 87275; 87276; 93005; 93306; 94640; 96374; 96375; 99284; G0378

== ENCOUNTER → 2019-10-09 09:50 | Outpatient (CLI) | payer MEDICARE, SELFPAY ==
[2019-10-09 10:10] LABS: Basophils # 0.1 K/mm3 (0-0.2); Basophils % 0.7 % (0.1-2.0); Eosinophils # 3.1 K/mm3 (0.0-0.4); Eosinophils % 26.1 % (0.1-12.0); Hematocrit 42.7 % (42.0-52.0); Hemoglobin 13.3 g/dL (14.1-18.0); Lymphocytes # 2.5 K/mm3 (0.7-4.5); Lymphocytes % 21.1 % (10-50); Mean Corpuscular HGB Conc 31.1 g/dL (31.8-35.4); Mean Corpuscular Hemoglobin 26.1 pg (27.0-31.2); Mean Platelet Volume 8.8 fl (7.4-10.4); Monocytes # 0.6 K/mm3 (0.1-1.0); Monocytes % 4.6 % (1.7-9.3); Neutrophils # 5.6 K/mm3 (1.8-7.8); Neutrophils % 47.5 % (37.0-80.0); Platelet Count 197 K/mm3 (142-424); Red Blood Count 5.08 M/mm3 (4.60-6.20); Red Cell Distribution Width 16.4 % (11.5-17.5); White Blood Count 11.8 K/mm3 (4.8-10.8)
[2019-10-09 11:05] LABS: Anion Gap 17.4 mEq/L (5-15); Blood Urea Nitrogen 49 mg/dL (7-18); Carbon Dioxide 27 mmol/L (21.0-32.0); Chloride 103 mmol/L (98-107); Creatinine,Serum 2.06 mg/dL (0.70-1.30); Estimated Glomerular Filt Rate 32 ml/min (>60); GFR (African American) 38 ML/MIN (>60); Glucose 213 mg/dL (74-106); Potassium 4.4 mmoL/L (3.5-5.1); Sodium 143 mmol/L (136-145)
== END ==
PROVIDERS: Visit Provider Internal Medicine Adolescent Medicine
DX: I50.9 Heart failure, unspecified (principal)
CPT/HCPCS: 36415; 80048; 83880; 85025

== ENCOUNTER → 2019-10-10 11:43 | Outpatient (CLI) | payer MEDICARE, SELFPAY ==
[2019-10-10 13:50] LABS: Anion Gap 14.6 mEq/L (5-15); Blood Urea Nitrogen 35 mg/dL (7-18); Calcium 8.8 mg/dL (8.5-10.1); Carbon Dioxide 28 mmol/L (21.0-32.0); Chloride 106 mmol/L (98-107); Creatinine,Serum 1.72 mg/dL (0.70-1.30); Estimated Glomerular Filt Rate 39 ml/min (>60); GFR (African American) 47 ML/MIN (>60); Glucose 193 mg/dL (74-106); Potassium 4.6 mmoL/L (3.5-5.1); Sodium 144 mmol/L (136-145)
== END ==
PROVIDERS: Visit Provider Internal Medicine Adolescent Medicine
DX: N17.9 Acute kidney failure, unspecified (principal)
CPT/HCPCS: 36415; 80048

== ENCOUNTER → 2019-11-07 11:07 | Outpatient (CLI) | payer MEDICARE, SELFPAY ==
[2019-11-07 12:28] LABS: Chloride 101 mmol/L (98-107)
[2019-11-07 12:29] LABS: Potassium 4.6 mmoL/L (3.5-5.1); Sodium 139 mmol/L (136-145)
[2019-11-07 12:30] LABS: Hemoglobin A1C 8.7 % (4.0-6.0)
[2019-11-07 12:31] LABS: Alanine Aminotransferase 14 U/L (12-78); Albumin/Globulin Ratio 1.3 (1.1-1.8); Alkaline Phosphatase 52 U/L (38-126); Anion Gap 13.6 mEq/L (5-15); Aspartate Amino Transferase 21 U/L (17-59); Bilirubin,Total 1.1 mg/dl (0.2-1.3); Blood Urea Nitrogen 25 mg/dl (9-20); Carbon Dioxide 29 mmol/L (22.0-30.0); Estimated Glomerular Filt Rate 46 ml/min (>60); GFR (African American) 55 ML/MIN (>60); Globulin 3.1 g/dL (1.3-3.2); Total Protein,Serum 7.1 g/dl (6.3-8.2)
[2019-11-07 12:32] LABS: Calcium 9.5 mg/dl (8.4-10.2); Glucose 175 mg/dl (74-100)
== END ==
PROVIDERS: Visit Provider Internal Medicine Adolescent Medicine
DX: E11.9 Type 2 diabetes mellitus without complications (principal); N17.9 Acute kidney failure, unspecified
CPT/HCPCS: 36415; 80053; 83036

== ENCOUNTER → 2020-01-30 10:35 | Outpatient (CLI) | payer MEDICARE, SELFPAY ==
--- NOTE | 2020-01-30 10:51 | XR_ITS ---
PROCEDURE: XR FOOT RT MIN 3V CLINICAL INDICATION: RT GREAT TOE PAIN Posttraumatic pain COMPARISON: No exams were available for comparison FINDINGS: There are mild osteoarthritic changes of the 1st metatarsophalangeal joint with mild hallux valgus and bunion formation. There is a vague oblique lucency through the proximal phalanx of the great toe. This is only identified on AP view and may be due to a groove within the proximal phalanx. Nondisplaced subacute fracture is also considered. No other significant anomalies are evident. IMPRESSION: Possible nondisplaced oblique subacute fracture through the proximal phalanx of the great toe. Please correlate with physical exam. Dictated by: Toby Chua MD 01/30/2020 11:31 Electronically signed by Toby Chua MD in [place] 01/30/2020 11:31
== END ==
PROVIDERS: PCP Internal Medicine Adolescent Medicine; Visit Provider Internal Medicine Adolescent Medicine
DX: M79.674 Pain in right toe(s) (principal)
CPT/HCPCS: 73630

== ENCOUNTER → 2020-02-25 09:14 | Outpatient (CLI) | payer MEDICARE, SELFPAY ==
--- NOTE | 2020-02-25 09:23 | XR_ITS ---
PROCEDURE: XR FOOT WT BEARING RT 3V CLINICAL INDICATION: fracture follow up COMPARISON: XR FOOT RT MIN 3V from 01/30/2020 FINDINGS: Healing oblique fracture involves the proximal phalanx of the great toe. Fracture line is less well-defined and nondisplaced. There are mild osteoarthritic changes of the 1st MTP joint. There is mild pes planus and there are mild degenerative changes at the talonavicular joint. There is a prominent bony spur along the dorsal and distal aspect of the 1st metatarsal. Generalized vascular calcification noted. Other findings:None. IMPRESSION: Healing fracture of the proximal phalanx of the great toe with degenerative changes and pes planus Dictated by: Toby Chua MD 02/25/2020 13:59 Electronically signed by Toby Chua MD in [place] 02/25/2020 13:59
== END ==
PROVIDERS: PCP Internal Medicine Adolescent Medicine; Visit Provider Podiatrist
DX: T14.8XXA Other injury of unspecified body region, initial encounter (principal); S92.414D Nondisplaced fracture of proximal phalanx of right great toe, subsequent encounter for fracture with routine healing
CPT/HCPCS: 73630

== ENCOUNTER → 2020-03-26 11:06 | Outpatient (CLI) | payer MEDICARE, SELFPAY ==
--- NOTE | 2020-03-26 11:08 | XR_ITS ---
PROCEDURE: XR FOOT WT BEARING RT 3V CLINICAL INDICATION: fracture follow up COMPARISON: XR FOOT RT MIN 3V from 01/30/2020 XR FOOT WT BEARING RT 3V from 02/25/2020 FINDINGS: There is a healing fracture of the proximal phalanx of the great toe with good alignment. There is mild pes planus with mild osteoarthritic change of the talonavicular joint and 1st metatarsophalangeal joint. There is generalized vascular calcification. IMPRESSION: Healing fracture of the great toe with osteoarthritic changes and pes planus Dictated by: Toby Chua MD 03/26/2020 14:13 Electronically signed by Toby Chua MD in [place] 03/26/2020 14:13
== END ==
PROVIDERS: PCP Internal Medicine Adolescent Medicine; Visit Provider Podiatrist
DX: S92.401D Displaced unspecified fracture of right great toe, subsequent encounter for fracture with routine healing (principal)
CPT/HCPCS: 73630

== ENCOUNTER → 2020-04-22 08:52 | Outpatient (CLI) | payer MEDICARE, SELFPAY ==
--- NOTE | 2020-04-22 09:02 | XR_ITS ---
PROCEDURE: XR FOOT WT BEARING RT 3V CLINICAL INDICATION: fracture follow up. At COMPARISON: CR XR FOOT RT MIN 3V from 01/30/2020 CR XR FOOT WT BEARING RT 3V from 02/25/2020 CR XR FOOT WT BEARING RT 3V from 03/26/2020 FINDINGS: No change nondisplaced fracture proximal phalanx 1st digit. Osteoarthritic changes 1st metatarsophalangeal junction. Borderline pes planus. Generalized vascular calcification. IMPRESSION: No change Dictated b Toby Chua MD 04/22/2020 15:38 Toby Chua MD in [place] 04/22/2020 15:38
== END ==
PROVIDERS: PCP Internal Medicine Adolescent Medicine; Visit Provider Podiatrist
DX: M79.673 Pain in unspecified foot (principal)
CPT/HCPCS: 73630

== ENCOUNTER → 2020-10-21 11:20 | Outpatient (CLI) | payer MEDICARE, SELFPAY ==
--- NOTE | 2020-10-21 11:29 | XR_ITS ---
PROCEDURE: XR FOOT WT BEARING RT 3V CLINICAL INDICATION: great toe pain COMPARISON: CR XR FOOT RT MIN 3V from 01/30/2020 CR XR FOOT WT BEARING RT 3V from 02/25/2020 CR XR FOOT WT BEARING RT 3V from 03/26/2020 CR XR FOOT WT BEARING RT 3V from 04/22/2020 FINDINGS: No fracture or dislocation. No lytic or blastic change. There is normal mineralization. Osteoarthritic changes are present at the 1st metatarsophalangeal joint with mild hypertrophy of the distal aspect of the 1st metatarsal and prominent bony spur along the dorsal and distal aspect of the 1st metatarsal. There is pes planus. There is generalized vascular calcification. Osteoarthritic changes are present at the talonavicular joint. Other findings:None. IMPRESSION: Osteoarthritic changes as described above with pes planus Dictated by: Toby Chua MD 10/21/2020 13:01 Toby Chua MD in [place] 10/21/2020 13:01
== END ==
PROVIDERS: PCP Internal Medicine Adolescent Medicine; Visit Provider Podiatrist
DX: T14.8XXA Other injury of unspecified body region, initial encounter (principal); S92.414D Nondisplaced fracture of proximal phalanx of right great toe, subsequent encounter for fracture with routine healing
CPT/HCPCS: 73630

== ENCOUNTER → 2020-12-25 10:45 | Outpatient (CLI) | payer MEDICARE, SELFPAY ==
--- NOTE | 2020-12-25 10:49 | XR_ITS ---
PROCEDURE: XR FOOT WT BEARING RT 3V CLINICAL INDICATION: foot pain COMPARISON: CR XR FOOT WT BEARING RT 3V from 02/25/2020 CR XR FOOT WT BEARING RT 3V from 03/26/2020 CR XR FOOT WT BEARING RT 3V from 04/22/2020 CR XR FOOT WT BEARING RT 3V from 10/21/2020 FINDINGS: There is now evidence a nondisplaced fracture involving the proximal aspect of the distal phalanx of the great toe Mild osteoarthritic change noted the 1st metatarsophalangeal junction. Prominent bony spurring is present along the dorsal and distal aspect of the 1st metatarsal. There is pes planus with mild osteoarthritic change at the talus/navicular joint. There is generalized vascular calcification. Other findings:None. IMPRESSION: Nondisplaced fracture distal phalanx great toe Degenerative changes Dictated by: Toby Chua MD 12/25/2020 12:56 Toby Chua MD in [place] 12/25/2020 12:56
== END ==
PROVIDERS: PCP Internal Medicine Adolescent Medicine; Visit Provider Nurse Practitioner
DX: T14.8XXA Other injury of unspecified body region, initial encounter (principal)
CPT/HCPCS: 73630

== ENCOUNTER → 2020-12-29 12:52 | Outpatient (CLI) | payer MEDICARE, SELFPAY ==
[2020-12-29 13:46] LABS: Basophils # 0.2 K/mm3 (0-0.2); Basophils % 1.5 % (0.1-2.0); Eosinophils # 0.9 K/mm3 (0.0-0.4); Eosinophils % 6.4 % (0.1-12.0); Hematocrit 49.5 % (42.0-52.0); Hemoglobin 16.2 g/dL (14.1-18.0); Lymphocytes # 3.5 K/mm3 (0.7-4.5); Lymphocytes % 25.6 % (10-50); Mean Corpuscular HGB Conc 32.7 g/dL (31.8-35.4); Mean Corpuscular Hemoglobin 27.5 pg (27.0-31.2); Mean Corpuscular Volume 84.1 fl (80-94); Mean Platelet Volume 9.3 fl (7.4-10.4); Monocytes # 0.9 K/mm3 (0.1-1.0); Monocytes % 6.4 % (1.7-9.3); Neutrophils # 8.2 K/mm3 (1.8-7.8); Neutrophils % 60.1 % (37.0-80.0); Platelet Count 226 K/mm3 (142-424); Red Blood Count 5.88 M/mm3 (4.60-6.20); Red Cell Distribution Width 15.2 % (11.5-17.5); White Blood Count 13.7 K/mm3 (4.8-10.8)
[2020-12-29 14:46] LABS: Chloride 97 mmol/L (98-107)
[2020-12-29 14:47] LABS: Potassium 4.7 mmoL/L (3.5-5.1); Sodium 139 mmol/L (136-145)
[2020-12-29 14:50] LABS: Anion Gap 19.7 mEq/L (5-15); Blood Urea Nitrogen 21 mg/dl (9-20); Calcium 11.6 mg/dl (8.4-10.2); Carbon Dioxide 27 mmol/L (22.0-30.0); Estimated Glomerular Filt Rate 49 ml/min (>60); GFR (African American) 60 ML/MIN (>60); Glucose 145 mg/dl (74-100)
[2020-12-29 15:00] LABS: NT Pro Brain Natriuretic Pep. 486 pg/mL (0-450)
== END ==
PROVIDERS: Visit Provider Internal Medicine Adolescent Medicine
DX: I50.30 Unspecified diastolic (congestive) heart failure (principal)
CPT/HCPCS: 36415; 80048; 83880; 85025

== ENCOUNTER → 2021-01-02 14:59 | Outpatient (CLI) | payer MEDICARE, SELFPAY ==
--- NOTE | 2021-01-02 | CA_ITS ---
APPROVED REPORT EXAM: Comprehensive 2D, Doppler, and color-flow Echocardiogram Coppersmith Helper: Sanaz Delgado RT(R) Ht: 6 ft 3 in Wt: 188lbs BSA: 2.14 BP: 136/73 mmHg Indications: COPD, ex smoker, HTN, hyperlipidemia, DM, CHF, hx of prosthetic Porcine AV, SOB 2D Dimensions LVOT 1.92 cm (M/F) 1.5-2.5 LVEF ([facility]) 64.50 % M: 52 - 72 LV Volume 95.70 mL M: 62 - 150 LV Volume Index 44.92 mL/m2 M: 34 - 74 LA Volume 51.90 mL LA Volume Index 24.36 mL/m2 (M/F) 16-34 M-Mode Dimensions RVDd 1.91 cm (0.9-2.6) LA Diam 3.71 cm (1.9-4.0) LVDd 3.27 cm (3.5-5.7) Ao Diam 2.81 cm (2.0-3.7) LVDs 2.46 cm (3.5-5.7) IVSd 1.40 cm (0.6-1.1) PWd 0.76 cm (0.6-1.1) EF (Teich) 50.50% FS 24.80% EDV (Teich) 43.20 mL TAPSE 1.26 (<1.7) ESV (Teich) 21.40 mL LV Diastology E Decel Time 170.00 (160-240 msec) E/A Ratio 0.6 MED E' 5.90 (< 7 cm/sec) E'/MED E' Ratio 13.46 (>14) LAT E' 7.80 (<10 cm/sec) E/LAT E' Ratio 10.18 (>14) Aortic Valve LVOT Max 89.00 (70-110 cm/s) LVOT VTI 16.07 cm AoV Peak Davon. 95.00 (50-130 cm/s) AO Peak GR. 3.60 mmHg AO Mean GR. 1.80 (<5 mmHg) AO VTI 15.54 (18-25 cm) TIAGO (VTI) 2.13 (2.5-4.5 cm2) Mitral Valve MV E Max Davon. 79.00 (40-130 cm/s) MV A Velocity 129.00 (40-130 cm/s) E/A Ratio 0.62 MV Decel. Time 170.00 (160-240 ms) MV PHT 50.00 ms Left Ventricle Left atrium mildly enlarged, left ventricle is normal size, mild concentric left ventricular hypertrophy, visually estimated ejection fraction 55% with no regional wall motion abnormality, grade 1 diastolic dysfunction seen without tissue Doppler evidence of raise left atrial pressure, septum is sigmoid configuration. Right Ventricle Right atrium and right ventricle are normal size and contractility. Aortic Valve Aortic valve is thickened and calcified without Doppler evidence of aortic stenosis or aortic insufficiency. Mitral Valve Mitral valve is minimally thickened and calcified, there is mitral annular calcification present, there is no mitral stenosis, there is mild mitral regurgitation. Tricuspid Valve Tricuspid valve grossly normal, there is mild tricuspid regurgitation, tricuspid regurgitation jet velocity is inadequate for calculation of the right ventricular systolic pressure. Pulmonic Valve Pulmonic valve is poorly visualized. Great Vessels Aortic root is normal size. Pericardium No significant pericardial effusion noted. Conclusion 1. Mildly enlarged left atrium, normal left ventricular size, mild concentric left ventricular hypertrophy, visually estimated ejection fraction 55% with no regional wall motion abnormality, grade 1 diastolic dysfunction seen without tissue Doppler evidence of raise left atrial pressure. 2. Thickened and calcified aortic valve without aortic stenosis or aortic insufficiency. 3. Mild mitral and tricuspid regurgitation. 4. No significant pericardial effusion noted. Electronically signed by : Mil Ross, 01/05/2021 09:42:12
== END ==
PROVIDERS: PCP Internal Medicine Adolescent Medicine; Visit Provider Internal Medicine Adolescent Medicine
DX: I50.32 Chronic diastolic (congestive) heart failure (principal)
CPT/HCPCS: 93306

== ENCOUNTER → 2021-01-05 13:24 | Outpatient (CLI) | payer MEDICARE, SELFPAY ==
--- NOTE | 2021-01-05 13:41 | XR_ITS ---
PROCEDURE: XR CHEST W DECUBITUS CLINICAL HISTORY: DIASTOLIC CHF W/ PRESERVED LT VENTRICULAR FUNCTION COMPARISON: CR CXR CHEST(2 VIEWS-NOT PORTABLE) from 01/14/2015 CR CXR CHEST(2 VIEWS-NOT PORTABLE) from 08/14/2015 CR XR CHEST 2V from 10/07/2019 FINDINGS: Prior median sternotomy with valvular replacement in the region the aortic or tricuspid valve. Normal heart size. No evidence of CHF. There is some minimal scarring in the right midlung. The lungs are clear without infiltrates, suspicious nodules, or pleural effusions. No acute bony abnormalities. IMPRESSION: Postsurgical changes, no acute finding Dictated by: Toby Chua MD 01/05/2021 14:12 Toby Chua MD in [place] 01/05/2021 14:12
[2021-01-05 14:36] LABS: Basophils # 0.1 K/mm3 (0-0.2); Basophils % 0.8 % (0.1-2.0); Eosinophils # 0.6 K/mm3 (0.0-0.4); Eosinophils % 5.6 % (0.1-12.0); Hematocrit 43.7 % (42.0-52.0); Hemoglobin 14.7 g/dL (14.1-18.0); Lymphocytes # 3.3 K/mm3 (0.7-4.5); Mean Corpuscular HGB Conc 33.7 g/dL (31.8-35.4); Mean Corpuscular Hemoglobin 28.2 pg (27.0-31.2); Mean Corpuscular Volume 83.8 fl (80-94); Mean Platelet Volume 8.6 fl (7.4-10.4); Monocytes # 0.5 K/mm3 (0.1-1.0); Monocytes % 4.5 % (1.7-9.3); Neutrophils # 6.6 K/mm3 (1.8-7.8); Neutrophils % 59.2 % (37.0-80.0); Platelet Count 182 K/mm3 (142-424); Red Blood Count 5.22 M/mm3 (4.60-6.20); Red Cell Distribution Width 15.2 % (11.5-17.5); White Blood Count 11.1 K/mm3 (4.8-10.8)
[2021-01-05 15:04] LABS: Chloride 102 mmol/L (98-107); Sodium 141 mmol/L (136-145)
[2021-01-05 15:05] LABS: Potassium 4.1 mmoL/L (3.5-5.1)
[2021-01-05 15:07] LABS: Alanine Aminotransferase 34 U/L (12-78); Albumin Level 4.6 g/dl (3.5-5.0); Albumin/Globulin Ratio 1.5 (1.1-1.8); Alkaline Phosphatase 40 U/L (38-126); Anion Gap 17.1 mEq/L (5-15); Aspartate Amino Transferase 40 U/L (17-59); Bilirubin,Total 2.4 mg/dl (0.2-1.3); Blood Urea Nitrogen 27 mg/dl (9-20); Carbon Dioxide 26 mmol/L (22.0-30.0); Estimated Glomerular Filt Rate 46 ml/min (>60); GFR (African American) 55 ML/MIN (>60); Total Protein,Serum 7.6 g/dl (6.3-8.2)
[2021-01-05 15:08] LABS: Calcium 9.3 mg/dl (8.4-10.2); Glucose 201 mg/dl (74-100)
== END ==
PROVIDERS: PCP Internal Medicine Adolescent Medicine; Visit Provider Internal Medicine Adolescent Medicine
DX: I50.33 Acute on chronic diastolic (congestive) heart failure (principal)
CPT/HCPCS: 36415; 71045; 80053; 85025

== ENCOUNTER → 2021-03-26 17:38 | Outpatient (CLI) | payer MEDICARE, SELFPAY | PROVIDERS: Visit Provider Internal Medicine Gastroenterology | DX: Z01.812 Encounter for preprocedural laboratory examination (principal); Z11.52 Encounter for screening for COVID-19; Z13.810 Encounter for screening for upper gastrointestinal disorder; R13.10 Dysphagia, unspecified | CPT/HCPCS: U0003 ==

== ENCOUNTER 2021-03-27 06:49 | Day surgery (SDC) | payer MEDICARE, SELFPAY ==
[2021-03-26 17:20] VITALS: BMI 21.9
[2021-03-27 07:09] VITALS: BP 165/86; PULSE 77; RESP 18; TEMP 36.2; O2SAT 99
[2021-03-27 07:26] LABS: POC Glucose,Bedside 121 (70-110)
--- NOTE | 2021-03-27 07:26 | HMH.ANESCL ---
[facility] Anesthesia Checklist - Patient Identification Patient Identification: Arm Band - Structural Data Admitted From: Home Planned Operative Procedure/s: EGD Consent for Planned Operative Procedure(s) Verified: Yes - NPO Status Verified Time NPO: 00:00 - Airway Assessment C-Spine Mobility Assessed: Yes TMJ Mobility Assessed: Yes Dentition: Edentulous - Neurological Assessment Level of Consciousness: Awake Hx Seizures: No Numbness or tingling in extremities: No - Anesthesia Plan Anesthesia Risk discussed: Yes Anesthesia Plan: Verified ASA Class: III Anesthesia Type: MAC [facility] History I have reviewed the patient's past medical history: Yes Medical History: Reports:: Chronic Obstructive Pulmonary Disease (COPD), Diabetes Mellitus Type 1, Diabetes Mellitus Type 2, Hyperlipidemia, Hypertension Denies:: Cancer, Internal Pacemaker, MRSA *Have you ever received a pneumonia vaccine?: No *Have you received a flu vaccine this season?: No Anesthesia experience/problems:: None Laterality Cases: Left: Cataract, Bilateral: Arthroscopy Shoulder Other Surgeries: Yes: Colonoscopy, Other Valve Replacement (Aortic valve replacement 2009). No: Pacemaker Amputation: No Fractures: No - *Social History Last grade of school completed: High school graduate Smoking Status: Former smoker # Packs/Day (cigarettes): 1 Alcohol Intake: never Substance Use Type: denies use *Occupational Status:: retired Housing: house Household Members: spouse *Travel in the last 8 weeks: None Family Hx:: Diabetes
[2021-03-27 07:45] VITALS: O2SAT 97
--- NOTE | 2021-03-27 07:56 | HMH.PROC ---
[facility] Procedure Note Procedure Note:: Upper Endoscopy Procedure Report: Esophagogastroduodenoscopy with cold biopsies and TTS balloon dilation Endoscopost: Avinash Rebollar II, MD Referring Physician: Philip Velarde M.D. Date of Procedure: March 27, 2021 Equipment: Olympus GIF 190 standard upper endoscope Sedation: MAC sedation Indications: Mr. Sparks is a 75-year-old gentleman who has had progressively worsening dysphagia over the last 2 to 3 months. He has lost 20 pounds in the last 2 to 3 months. He does state that he weighed 220 pounds a few years ago and now weighs 176 pounds. He states that most food which gets stuck will then need to be regurgitated. He is able to tolerate liquids. The patient does not have a history of GERD or reflux. He reports no heartburn. He quit tobacco in 2009. This is his first upper endoscopy. Procedure: Prior to the procedure, a history and physical exam was performed, and patient's medications and allergies were reviewed. The risks, benefits and alternatives of the sedation and procedure were discussed with the patient. All questions were answered and informed consent was obtained. The patient was brought to the procedure room. Patient identification and proposed procedure were verified by the physician and the nurse. The patient was placed in a left lateral decubitus position and the scope was passed under direct vision. Throughout the procedure, the patient's blood pressure, pulse, and oxygen saturations were monitored continuously. The upper GI endoscopy was accomplished without difficulty. The patient tolerated the procedure well. Findings: The scope was passed directly into the upper esophagus and advanced to the third portion of the duodenum. The post bulbar duodenum and duodenal bulb were normal with normal mucosa and conniventes. There was mild peptic duodenitis of the duodenal bulb. The scope was withdrawn through a normal pylorus into the stomach. There was some mild linear reactive gastropathy of the antrum. There was some chronic gastritis of the body and fundus of the stomach. 2 biopsies were taken in the antrum and along the lesser curvature for histology to rule out gastritis and/or H pylori. Upon retroflexion there was a small 1 to 2 cm hiatal hernia. The scope was then withdrawn into the esophagus. There was a distal ringlike peptic stricture with grade C reflux esophagitis. Multiple biopsies were taken at the GE junction to rule out [place]'s. There was some mild esophageal dysmotility. The ringlike stricture and entire esophagus were dilated to 60 Czech/20 mm with a TTS hydrostatic balloon. The remainder of the esophageal mucosa was normal. Impression: 1. 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 Chronic gastritis (type A) with mild antral gastropathy Plan: I will follow-up the biopsies. I will place the patient on PPI therapy (omeprazole 40 mg by mouth daily). The patient should have clinical improvement. Given his degree of weight loss, I will follow-up the pathology as well as have him follow-up clinically in the office to assess for clinical improvement. I would also consider an imaging study of the chest and abdomen.
[2021-03-27 08:09] VITALS: BP 96/54; PULSE 74; RESP 16; TEMP 36.4; O2SAT 96
[2021-03-27 08:19] VITALS: BP 121/63; PULSE 71; RESP 16; O2SAT 96
[2021-03-27 08:29] VITALS: BP 121/87; PULSE 72; RESP 16; O2SAT 96
[2021-03-27 08:39] VITALS: BP 140/65; PULSE 67; RESP 16; O2SAT 97
== END 2021-03-27 08:39 | disposition home or self-care (01) ==
PROVIDERS: PCP Internal Medicine Adolescent Medicine; Visit Provider Internal Medicine Gastroenterology
PROC: 0DJ08ZZ Inspection of Upper Intestinal Tract, Via Natural or Artificial Opening Endoscopic (ICD-10-PCS; CPT 43235; principal; 2021-03-27 08:00)
DX: R13.10 Dysphagia, unspecified (principal); K29.50 Unspecified chronic gastritis without bleeding; K44.9 Diaphragmatic hernia without obstruction or gangrene; K21.00 Gastro-esophageal reflux disease with esophagitis, without bleeding; K22.4 Dyskinesia of esophagus; E11.9 Type 2 diabetes mellitus without complications; I10 Essential (primary) hypertension
CPT/HCPCS: 43239; 43249; 82962; 88305; C1726

== ENCOUNTER → 2021-05-20 09:28 | Outpatient (CLI) | payer MEDICARE, SELFPAY | PROVIDERS: Visit Provider Internal Medicine Gastroenterology | DX: Z01.812 Encounter for preprocedural laboratory examination (principal); Z20.822 Contact with and (suspected) exposure to COVID-19; Z12.11 Encounter for screening for malignant neoplasm of colon | CPT/HCPCS: U0003 ==

== ENCOUNTER 2021-05-22 08:24 | Day surgery (SDC) | payer MEDICARE, SELFPAY ==
[2021-05-15 11:49] VITALS: BMI 21.9
[2021-05-22] VITALS (7 sets, daily range): BP systolic 107–128; BP diastolic 59–73; PULSE 61–74; RESP 16–18; TEMP 36.3; O2SAT 96–97
[2021-05-22 09:04] LABS: POC Glucose,Bedside 108 (70-110)
--- NOTE | 2021-05-22 09:05 | HMH.ANESCL ---
[facility] Anesthesia Checklist - Patient Identification Patient Identification: Arm Band - Structural Data Admitted From: Home Planned Operative Procedure/s: Colonoscopy Consent for Planned Operative Procedure(s) Verified: Yes - NPO Status Verified Time NPO: 00:00 - Airway Assessment C-Spine Mobility Assessed: Yes TMJ Mobility Assessed: Yes Dentition: Poor Dentition - Neurological Assessment Level of Consciousness: Awake Hx Seizures: No Numbness or tingling in extremities: No - Anesthesia Plan Anesthesia Risk discussed: Yes Anesthesia Plan: Verified ASA Class: III Anesthesia Type: MAC [facility] History I have reviewed the patient's past medical history: Yes Medical History: Reports:: Chronic Obstructive Pulmonary Disease (COPD), Diabetes Mellitus Type 2, Hyperlipidemia, Hypertension Denies:: Cancer, Diabetes Mellitus Type 1, Internal Pacemaker, MRSA, Seizures *Have you ever received a pneumonia vaccine?: Yes *Have you received a flu vaccine this season?: Yes (2019) Anesthesia experience/problems:: NOne Laterality Cases: Bilateral: Arthroscopy Shoulder Other Surgeries: Yes: Colonoscopy, Other Valve Replacement (Aortic valve replacement 2009). No: Pacemaker Amputation: No Fractures: No - *Social History Last grade of school completed: High school graduate Smoking Status: Never smoker # Packs/Day (cigarettes): 1 Alcohol Intake: never Substance Use Type: denies use *Occupational Status:: retired Housing: house Household Members: spouse *Travel in the last 8 weeks: None Family Hx:: Diabetes
--- NOTE | 2021-05-22 10:01 | P.PCN_ITS ---
[facility] Procedure Note Procedure Note:: Colonoscopy Procedure Report: Colonoscopy with cold snare polypectomy Endoscopist: Avinash Rebollar II, MD Referring physician: Philip Velarde M.D. Date of Procedure: May 22, 2021 Equipment: Olympus 190 variable stiffness pediatric colonoscope Sedation: MAC sedation Indication: Mr. Sparks is a 75-year-old gentleman who is here for screening colonoscopy. His last colonoscopy was approximately 10 years ago. He reports no abdominal pain, weight loss, change in his bowel habits or rectal bleeding. He reports no family history of colon cancer. Procedure: Prior to the procedure, a history and physical exam was performed, and patient's medications and allergies were reviewed. The risks, benefits and alternatives of the sedation and procedure were discussed with the patient. All questions were answered and informed consent was obtained. The patient was brought to the procedure room. Patient identification and proposed procedure were verified by the physician and the nurse. The patient was placed in a left lateral decubitus position and the scope was passed under direct vision. Throughout the procedure, the patient's blood pressure, pulse, and oxygen saturations were monitored continuously. The colonoscopy was accomplished without difficulty. The patient tolerated the procedure well. Findings: On digital rectal examination there was normal rectal tone. There were no external hemorrhoids. The colonoscope was introduced through the anal canal to the rectum and advanced to the cecum. The ileocecal valve and appendiceal orifice were identified. The scope was advanced a short distance into the ileum which appeared grossly normal. The scope was then withdrawn into the colon. There were 3 colon polyps (cecum x2 (3 and 5 mm) and transverse x1 (4 mm)) which were removed via cold snare polypectomy. The remaining cecum, ascending and transverse colon and mucosa were grossly normal. There were scattered extensive diverticuli throughout the descending and sigmoid colon (LEFT colon). The rectum itself was normal. Upon retroflexion within the rectum there were grade 2 culinary internship al hemorrhoids. The preparation was excellent throughout with [place] Preparation Score of 9. The cecal time was 12 minutes. Impression: 1. Colonic polyps x3 2. Extensive left-sided diverticulosis 3. Grade 2 internal hemorrhoids Plan: I will follow up the polyp histology. Based upon his age, I do not feel that he will require any further preventive/surveillance colonoscopy. I would encourage bulk fiber supplementation on a long-term daily maintenance basis.
== END 2021-05-22 10:45 | disposition home or self-care (01) ==
LOC: OUTP 08:26
PROVIDERS: PCP Internal Medicine Adolescent Medicine; Visit Provider Internal Medicine Gastroenterology
PROC: 0DJD8ZZ Inspection of Lower Intestinal Tract, Via Natural or Artificial Opening Endoscopic (ICD-10-PCS; CPT 45378; principal; 2021-05-22 09:30)
DX: Z12.11 Encounter for screening for malignant neoplasm of colon (principal); K63.5 Polyp of colon; K57.32 Diverticulitis of large intestine without perforation or abscess without bleeding; K64.1 Second degree hemorrhoids; J44.9 Chronic obstructive pulmonary disease, unspecified; E11.9 Type 2 diabetes mellitus without complications; E78.5 Hyperlipidemia, unspecified; I10 Essential (primary) hypertension; Z83.3 Family history of diabetes mellitus; Z79.82 Long term (current) use of aspirin; Z79.899 Other long term (current) drug therapy
CPT/HCPCS: 45385; 82962; 88305; J2704

== ENCOUNTER → 2021-08-27 12:10 | Outpatient (CLI) | payer MEDICARE, SELFPAY ==
[2021-08-27 12:51] LABS: Basophils # 0.2 K/mm3 (0-0.2); Basophils % 1.7 % (0.1-2.0); Eosinophils # 1.1 K/mm3 (0.0-0.4); Eosinophils % 10.9 % (0.1-12.0); Hematocrit 47.2 % (42.0-52.0); Hemoglobin 16.2 g/dL (14.1-18.0); Lymphocytes % 28.7 % (10-50); Mean Corpuscular HGB Conc 34.3 g/dL (31.8-35.4); Mean Corpuscular Hemoglobin 31.5 pg (27.0-31.2); Mean Corpuscular Volume 91.8 fl (80-94); Mean Platelet Volume 8.4 fl (7.4-10.4); Monocytes # 0.6 K/mm3 (0.1-1.0); Neutrophils # 5.5 K/mm3 (1.8-7.8); Neutrophils % 52.7 % (37.0-80.0); Platelet Count 223 K/mm3 (142-424); Red Blood Count 5.14 M/mm3 (4.60-6.20); Red Cell Distribution Width 13.7 % (11.5-17.5); White Blood Count 10.4 K/mm3 (4.8-10.8)
[2021-08-27 13:50] LABS: Alanine Aminotransferase 32 U/L (12-78); Albumin Level 4.7 g/dl (3.5-5.0); Albumin/Globulin Ratio 1.6 (1.1-1.8); Alkaline Phosphatase 49 U/L (38-126); Anion Gap 10.3 mEq/L (5-15); Aspartate Amino Transferase 38 U/L (17-59); Bilirubin,Total 2.8 mg/dl (0.2-1.3); Blood Urea Nitrogen 32 mg/dl (9-20); Calcium 9.7 mg/dl (8.4-10.2); Carbon Dioxide 32 mmol/L (22.0-30.0); Chloride 99 mmol/L (98-107); Chol/HDL Ratio 1.8 (1-3.5); Cholesterol 89 mg/dl (140-200); Estimated Glomerular Filt Rate 49 ml/min (>60); GFR (African American) 59 ML/MIN (>60); Glucose 154 mg/dl (74-100); HDL Cholesterol 49 mg/dl (40-60); Potassium 4.3 mmoL/L (3.5-5.1); Sodium 137 mmol/L (136-145); Total Protein,Serum 7.7 g/dl (6.3-8.2); Triglycerides 100 mg/dl (30-150); VLDL Cholesterol 20 mg/dL (0-40)
[2021-08-27 14:20] LABS: Direct LDL Cholesterol < 30.00 mg/dL (100-129)
[2021-08-27 14:22] LABS: Thyroid Stimulating Hormone 1.61 uIU/mL (0.465-4.68)
== END ==
PROVIDERS: Visit Provider Internal Medicine Adolescent Medicine
DX: E11.9 Type 2 diabetes mellitus without complications (principal); E03.9 Hypothyroidism, unspecified; I10 Essential (primary) hypertension; Z79.84 Long term (current) use of oral hypoglycemic drugs
CPT/HCPCS: 36415; 80053; 80061; 83036; 84443; 85025

== ENCOUNTER 2021-11-15 21:48 | Observation (INO) | payer MEDICARE, SELFPAY ==
--- NOTE | 2021-11-15 21:46 | ECG_ITS ---
APPROVED REPORT Exam: Resting ECG HR:88 bpm ECG Measurements Heart Rate 88 AXES QRSd 96 QRS 2 QT 357 T 98 QTc 403 Conclusion ATRIAL FIBRILLATION Previously noted poor R wave progression Electronically signed by : Philip Velarde MD 11/20/2021 16:15:12
[2021-11-15 21:48] VITALS: BP 178/111; PULSE 58; RESP 20; TEMP 36.7; O2SAT 97; BMI 23.8
[2021-11-15 21:51] VITALS: BMI 23.8
--- NOTE | 2021-11-15 21:53 | XR_ITS ---
PROCEDURE INFORMATION: Exam: XR Chest Exam date and time: 11/15/2021 9:53 PM Age: 76 years old Clinical indication: Pain; Left-sided; Prior surgery; Surgery date: 6+ months; Surgery type: Open heart and both shoulders; Additional info: Left side chest pain x 45 mins TECHNIQUE: Imaging protocol: XR of the chest. Views: 2 views. COMPARISON: CR XR CHEST W DECUBITUS 01/05/2021 1:51 PM FINDINGS: Lungs: Diffuse interstitial coarsening. No lobar consolidation. Pleural spaces: Unremarkable. No pleural effusion. No pneumothorax. Heart/Mediastinum: Unremarkable. No cardiomegaly. Bones/joints: Median sternotomy wires. IMPRESSION: Diffuse interstitial coarsening potentially related to developing interstitial edema. Clinical correlation recommended.
--- NOTE | 2021-11-15 21:54 | CT_ITS ---
PROCEDURE INFORMATION: Exam: CTA Chest With Contrast Exam date and time: 11/15/2021 9:54 PM Age: 76 years old Clinical indication: Pain; Left-sided; Prior surgery; Surgery date: 6+ months; Surgery type: Open heart surgery and both shoulder surgeries; Additional info: Left side chest pain, reproducible with palpation TECHNIQUE: Imaging protocol: Computed tomographic angiography of the chest with contrast. 3D rendering (Not supervised by radiologist): MIP and/or 3D reconstructed images were created by the technologist. Radiation optimization: All CT scans at this facility use at least one of these dose optimization techniques: automated exposure control; mA and/or kV adjustment per patient size (includes targeted exams where dose is matched to clinical indication); or iterative reconstruction. Contrast material: ISOVUE 370; Contrast volume: 70 ml; Contrast route: INTRAVENOUS (IV); COMPARISON: CR XR CHEST 2V 11/15/2021 10:14 PM FINDINGS: Pulmonary arteries: Examination is mildly limited by motion. No definite acute pulmonary emboli. Aorta: Calcified atherosclerosis. Ascending thoracic aorta appears ectatic measuring approximately 4.2 cm. Lungs: Septal thickening with dependent ground-glass opacities. Pleural spaces: No pneumothorax. No pleural effusion. Heart: No cardiomegaly. No pericardial effusion. Lymph nodes: Borderline enlarged mediastinal lymph nodes. Gallbladder and bile ducts: Gallstones near the gallbladder neck. Bones/joints: No acute fracture. Soft tissues: No significant swelling. IMPRESSION: 1. Septal thickening with dependent ground-glass opacities potentially secondary to developing edema. Clinical correlation recommended. 2. Gallstones near the gallbladder neck.
[2021-11-15 22:00] LABS: Basophils # 0.1 K/mm3 (0-0.2); Basophils % 1.1 % (0.1-2.0); Eosinophils % 8.8 % (0.1-12.0); Hematocrit 47.5 % (42.0-52.0); Hemoglobin 15.9 g/dL (14.1-18.0); Lymphocytes # 3.6 K/mm3 (0.7-4.5); Lymphocytes % 32.2 % (10-50); Mean Corpuscular HGB Conc 33.6 g/dL (31.8-35.4); Mean Corpuscular Hemoglobin 31.2 pg (27.0-31.2); Mean Platelet Volume 8.2 fl (7.4-10.4); Monocytes # 0.6 K/mm3 (0.1-1.0); Monocytes % 5.1 % (1.7-9.3); Neutrophils % 52.8 % (37.0-80.0); Platelet Count 190 K/mm3 (142-424); Red Blood Count 5.11 M/mm3 (4.60-6.20); Red Cell Distribution Width 13.5 % (11.5-17.5); White Blood Count 11.3 K/mm3 (4.8-10.8)
[2021-11-15 22:10] LABS: Alanine Aminotransferase 28 U/L (12-78); Albumin Level 4.7 g/dl (3.5-5.0); Alkaline Phosphatase 53 U/L (38-126); Anion Gap 15.3 mEq/L (5-15); Aspartate Amino Transferase 35 U/L (17-59); Bilirubin,Direct 0.2 mg/dl (0.0-0.4); Bilirubin,Indirect 1.8 mg/dL (0.0-0.9); Bilirubin,Unconjugated 1.9 mg/dL (0.0-1.1); Blood Urea Nitrogen 40 mg/dl (9-20); Calcium 8.9 mg/dl (8.4-10.2); Carbon Dioxide 26 mmol/L (22.0-30.0); Chloride 101 mmol/L (98-107); Creatinine Clearance Estimated 49 mL/min (50-200); Estimated Glomerular Filt Rate 45 ml/min (>60); GFR (African American) 55 ML/MIN (>60); Glucose 208 mg/dl (74-100); Potassium 4.3 mmoL/L (3.5-5.1); Sodium 138 mmol/L (136-145); Total Protein,Serum 8.1 g/dl (6.3-8.2)
--- NOTE | 2021-11-15 22:17 | HMH.EDCP ---
ED Disposition Clinical Impression: Unstable angina pectoris, Type 2 diabetes mellitus with hyperglycemia, without long-term current use of insulin A-fib Qualifiers: Atrial fibrillation type: unspecified Qualified Code(s): I48.91 - Unspecified atrial fibrillation Disposition: Admitted as Observation Condition on Discharge: Good Referrals: Philip Velarde MD [Primary Care Provider] - - Critical Care Critical Care Time: No Attestation: On 11/15/21, the high probability of a clinically significant, sudden or life threatening deterioration of the following system(s) required my full and direct attention, intervention and personal management. The time I documented below is in addition to time spent performing reported procedures but includes the following listed in this critical care notation. Medical Decision Making - Medical Records Medical records reviewed: Yes: I reviewed the patient's medical records. - Benja Inquiry Pt receiving controlled substance: No Vital Signs: 11/15/21 21:48 Temperature 98.1 F Temperature Source Oral Pulse Rate [Left] 58 L Respiratory Rate 20 Blood Pressure [Right Arm] 178/111 H Blood Pressure Mean [Right Arm] 133 02 Sat by Pulse Oximetry 97 Oxygen Delivery Method Room Air - Lab Data Lab results reviewed: Yes: I reviewed the patient's lab results. Lab Results 11/15/21 21:51: WBC 11.3 H, RBC 5.11, Hgb 15.9, Hct 47.5, MCV 93.0, MCH 31.2, MCHC 33.6, RDW 13.5, Plt Count 190, MPV 8.2, Neut % (Auto) 52.8, Lymph % (Auto) 32.2, [place] % (Auto) 5.1, Eos % (Auto) 8.8, Baso % (Auto) 1.1, Neut # (Auto) 6.0, Lymph # (Auto) 3.6, [place] # (Auto) 0.6, Eos # (Auto) 1.0 H, Baso # (Auto) 0.1 11/15/21 21:51: Sodium 138, Potassium 4.3, Chloride 101, Carbon Dioxide 26, Anion Gap 15.3 H, BUN 40 H, Creatinine 1.50 H, Estimated Creat Clear 49, Estimated GFR 45 L, Est GFR ( Amer) 55 L, Glucose 208 H, Calcium 8.9, Total Bilirubin 2.0 H, Direct Bilirubin 0.2, Conjugated Bilirubin 0.0, Indirect Bilirubin 1.8 H, Unconjugated Bilirubin 1.9 H, AST 35, ALT 28, Alkaline Phosphatase 53, Troponin I < 0.01, NT-Pro-B Natriuret Pep 887 H, Total Protein 8.1, Albumin 4.7, TSH 3.72, Thyroxine (T4) 8.5 11/15/21 21:53: SARS-CoV-2 (PCR) Not detected, Influenza A Untype (PCR) Not detected, Influenza Type B (PCR) Not detected Result diagrams: 11/15/21 21:51 11/15/21 21:51 Orders (Tests/Meds): ED MEDICATIONS Discontinued Medications Generic Name Dose Route Start Last Admin Trade Name Freq PRN Reason Stop Dose Admin Aspirin 243 mg 11/15/21 22:05 11/15/21 22:08 Aspirin 81mg Chewable Tablet PO 11/15/21 22:06 243 mg ONCE ONE Administration Iopamidol 70 ml 11/15/21 22:37 11/15/21 22:38 Iopamidol-370 (76%);100ml Bottle IV 11/15/21 22:38 70 ml ONCE ONE Administration Ketorolac Tromethamine 30 mg 11/15/21 21:56 11/15/21 22:08 Ketorolac 30mg/Ml Vial IV 11/15/21 21:57 30 mg ONCE ONE Administration Methylprednisolone Sodium Succinate 125 mg 11/15/21 21:56 11/15/21 22:08 Methylprednisolone Sod Succ 125mg Vial IV 11/15/21 21:57 125 mg ONCE ONE Administration Nitroglycerin 1 gm 11/15/21 22:36 11/15/21 22:40 Nitroglycerin 1 Gm Ointment TD 11/15/21 22:37 1 gm ONCE ONE Administration Sodium Chloride 40 ml 11/15/21 22:37 11/15/21 22:38 0.9 % Sodium Chloride 50 Ml Vial IV 11/15/21 22:38 40 ml ONCE ONE Administration Sodium Chloride 10 ml 11/15/21 22:37 11/15/21 22:38 Sodium Chloride 0.9% 10ml Syr (Rad Only) IV 11/15/21 22:38 10 ml ONCE ONE Administration ORDERS Category Date Time Status Troponin I Q3H Lab 11/16/21 01:00 Ordered Troponin I Q3H Lab 11/16/21 04:00 Ordered - Radiology Data #1 Image(s): Chest Image Reviewed: Yes I have reviewed radiologist's interpretation Preliminary Findings: Abnormal (see report ) - CT Data CT Scan: Chest Time Received: 23:[address] Reviewed: Yes: I have viewed the radiologist's interpret
[2021-11-15 22:19] LABS: Coronavirus 19, PCR Not Detected (NotDetected); Influenza A, PCR Not Detected (NotDetected); Influenza B, PCR Not Detected (NotDetected)
[2021-11-15 22:23] LABS: NT Pro Brain Natriuretic Pep. 887 pg/mL (0-450)
[2021-11-15 22:25] LABS: Troponin I < 0.01 ng/ml (0.00-0.034)
[2021-11-15 22:28] LABS: T4 (Thyroxine) 8.5 ug/dl (5.53-11.0)
[2021-11-15 22:41] LABS: Thyroid Stimulating Hormone 3.72 uIU/mL (0.465-4.68)
--- NOTE | 2021-11-15 23:12 | PC.NURSE ---
Received rapid point abg results from [facility]. Due to malfunction with computer crossover, they are as follows: Time 23:12 ARTERIAL SAMPLE 11/15/21 ACID/ BASE: 37.0 DEGREES CELCIUS PH 7.507 PCO2 29.7 P02 67.1 HCO3 23.0 BE(B) 0.6 BE (ECF) -0.1 CTCO2 23.9 CO-OXIMETRY THB 11.0 SO2 94.2 FO2HB 90.3 FCOHB 3.8 FMTHB 0.3 FHHB 5.6 ELECTROLYTES NA 126.4 K 3.48 CA++ 4.9 CL- 100 METABOLITES GLU 131 LAC 2.41
[2021-11-15 23:27] VITALS: PULSE 99; BMI 23.3
[2021-11-15 23:41] VITALS: BP 142/70; PULSE 79; RESP 18; TEMP 36.8; O2SAT 98
[2021-11-16] VITALS: BP 130/71; PULSE 100; RESP 18; TEMP 36.7; O2SAT 94
[2021-11-16 00:02] VITALS: BP 123/70; PULSE 85; RESP 20; TEMP 36.8; O2SAT 94
--- NOTE | 2021-11-16 00:05 | PC.NURSE ---
PT ARRIVED TO FLOOR VIA W/C FROM ED W/STAFF @ [id number]
[2021-11-16 01:40] LABS: Troponin I < 0.01 ng/ml (0.00-0.034)
[2021-11-16 04:00] VITALS: BP 128/82; PULSE 95; PULSE 98; RESP 20; TEMP 36.8; O2SAT 94
[2021-11-16 04:26] LABS: Basophils % 0.4 % (0.1-2.0); Eosinophils # 0.1 K/mm3 (0.0-0.4); Eosinophils % 0.6 % (0.1-12.0); Hematocrit 43.8 % (42.0-52.0); Hemoglobin 14.5 g/dL (14.1-18.0); Lymphocytes % 11.7 % (10-50); Mean Corpuscular HGB Conc 33.1 g/dL (31.8-35.4); Mean Corpuscular Hemoglobin 31.2 pg (27.0-31.2); Mean Corpuscular Volume 94.4 fl (80-94); Mean Platelet Volume 8.4 fl (7.4-10.4); Monocytes # 0.1 K/mm3 (0.1-1.0); Monocytes % 1.5 % (1.7-9.3); Neutrophils # 7.6 K/mm3 (1.8-7.8); Neutrophils % 85.8 % (37.0-80.0); Platelet Count 164 K/mm3 (142-424); Red Blood Count 4.64 M/mm3 (4.60-6.20); Red Cell Distribution Width 13.4 % (11.5-17.5); White Blood Count 8.9 K/mm3 (4.8-10.8)
[2021-11-16 04:28] LABS: MANUAL DIFFERENTIAL MANUAL DIFFERENTIAL (MANUAL DIFF)
[2021-11-16 04:39] LABS: Anion Gap 13.9 mEq/L (5-15); Blood Urea Nitrogen 46 mg/dl (9-20); Calcium 8.7 mg/dl (8.4-10.2); Carbon Dioxide 23 mmol/L (22.0-30.0); Chloride 102 mmol/L (98-107); Creatinine Clearance Estimated 45 mL/min (50-200); Estimated Glomerular Filt Rate 42 ml/min (>60); GFR (African American) 51 ML/MIN (>60); Potassium 4.9 mmoL/L (3.5-5.1); Sodium 134 mmol/L (136-145)
[2021-11-16 04:40] LABS: Glucose 353 mg/dl (74-100)
[2021-11-16 04:57] LABS: Troponin I < 0.01 ng/ml (0.00-0.034)
[2021-11-16 04:59] LABS: Lymphocytes % 10 % (10-50); Neutrophils % 85 % (42-76); Platelet Estimate Normal; RBC Morphology Normal; Total Cells Counted 100
[2021-11-16 06:28] LABS: POC Glucose,Bedside 331 (70-110)
--- NOTE | 2021-11-16 07:16 | P.CONPHA_ITS ---
[facility] Pharmacy VTE Monitoring - Patient Demographics Admission date: 11/15/21 Report Date: 11/16/21 Time: 07:16 Allergies/Adverse Reactions: Patient Allergies No Known Allergies Allergy (Verified 12/25/20 13:24) Height: 1.88 m Weight: 82.554 kg Patient Problems: Current Active Problems Unstable angina pectoris (Acute) A-fib (Acute) Type 2 diabetes mellitus with hyperglycemia, without long-term current use of insulin (Acute) - VTE Risk Labs: VTE Related Lab Results Hgb 14.5 g/dL (14.1-18.0) 11/16/21 04:15 Hct 43.8 % (42.0-52.0) 11/16/21 04:15 Plt Count 164 K/mm3 (142-424) 11/16/21 04:15 BUN 46 mg/dl (9-20) H 11/16/21 04:15 Creatinine 1.60 mg/dl (0.66-1.25) H 11/16/21 04:15 Estimated Creat Clear 45 mL/min (50-200) 11/16/21 04:15 VTE Score: 3 VTE Risk Level: Low Risk - Prophylaxis VTE Prophylaxis Ordered?: Yes Types of VTE Prophylaxis: TEDS Knee High, Pharmacological Location of Applied Device: Bilateral Lower Extremeties Pharmacologic Type: Other (ELIQUIS)
[2021-11-16 07:52] VITALS: BP 122/65; PULSE 96; RESP 18; TEMP 36.7; O2SAT 95
[2021-11-16 08:00] VITALS: PULSE 100
--- NOTE | 2021-11-16 08:00 | CA_ITS ---
APPROVED REPORT EXAM: Comprehensive 2D, Doppler, and color-flow Echocardiogram Picture Frame Maker: Gardenia Erazo CRT Ht: 6 ft 2 in Wt: 186lbs BSA: 2.11 BP: 175/111 mmHg Indications: COPD, Shortness of Breath, Diabetes, Hyperlipidemia, Hypertension/HDD, AVR 2010- PORCINE, EXSMOKER 2D Dimensions Aortic Root 1.94 cm LA Volume 59.60 mL LA Volume Index 28.20 mL/m2 (M/F) 16-34 M-Mode Dimensions RVDd 2.99 cm (0.9-2.6) LA Diam 5.34 cm (1.9-4.0) LVDd 4.65 cm (3.5-5.7) Ao Diam 4.37 cm (2.0-3.7) LVDs 3.53 cm (3.5-5.7) IVSd 2.61 cm (0.6-1.1) PWd 1.07 cm (0.6-1.1) EF (Teich) 48.00% FS 24.10% EDV (Teich) 99.80 mL TAPSE 1.66 (<1.7) ESV (Teich) 51.90 mL LV Diastology E Decel Time 193.00 (160-240 msec) E/A Ratio 2.44 MED E' 7.00 (< 7 cm/sec) MED A' 2.70 cm/s E'/MED E' Ratio 13.14 (>14) LAT E' 11.30 (<10 cm/sec) LAT A' 4.80 cm/s E/LAT E' Ratio 8.14 (>14) Aortic Valve LVOT Max 113.00 (70-110 cm/s) LVOT VTI 20.11 cm AoV Peak Davon. 152.00 (50-130 cm/s) AO Peak GR. 10.20 mmHg AO Mean GR. 6.70 (<5 mmHg) AO VTI 29.88 (18-25 cm) Mitral Valve MV E Max Davon. 92.00 (40-130 cm/s) MV A Velocity 38.00 (40-130 cm/s) E/A Ratio 2.44 MV Decel. Time 193.00 (160-240 ms) MV PHT 57.00 ms Pulmonary Valve PV Peak Velocity 214.00 (50-150 cm/s) Tricuspid Valve TR P. Velocity 227.00 cm/s RAP Estimate 10.00 mmHg RVSP 30.70 mmHg Left Ventricle Left atrium is moderately enlarged, left ventricle is normal size, mild concentric left ventricular hypertrophy, visually estimated ejection fraction 55 to 60% with no regional wall motion abnormality, diastolic parameters are inconclusive. Right Ventricle Right atrium and right ventricle are mildly enlarged with normal contractility. Aortic Valve Bioprosthetic valve noted in the aortic position, there is no aortic outflow obstruction or aortic insufficiency. Mitral Valve Mitral valve is minimally thickened, there is mild mitral regurgitation. Tricuspid Valve Tricuspid valve grossly normal, there is trace tricuspid regurgitation, tricuspid regurgitation jet velocity is inadequate for calculation of the right ventricular systolic pressure. Pulmonic Valve Pulmonic valve is poorly visualized, there is mild pulmonic insufficiency. Great Vessels Aortic root is normal size. Inferior vena cava is poorly visualized. Pericardium No significant pericardial effusion noted. Conclusion 1. Technically difficult study because of the patient factors and poor acoustic windows. 2. Biatrial enlargement, normal left ventricular size, mild concentric left ventricular hypertrophy, visually estimated ejection fraction 55 to 60% with no regional wall motion abnormality, diastolic parameters are inconclusive. 3. Normal functioning bioprosthetic valve in the aortic position. 4. Mild mitral and tricuspid regurgitation. 5. No significant pericardial effusion. 6. Inferior vena cava is poorly visualized. Electronically signed by : Mil Ross MD 11/16/2021 09:44:27
--- NOTE | 2021-11-16 08:52 | HMH.HPDC ---
General - General Admission date:: 11/16/21 Discharge date: 11/16/21 *Admission Date: 11/15/21 *Chief complaint: Chest pain *History of present illness: 76-year-old white male with history of coronary disease, chronic kidney disease, atrial fibrillation, follows with Dr. Coleman at [facility] cardiology, who recently saw him in November and was started on Eliquis for atrial fibrillation. Has been doing well but yesterday had a sensation of sharp, nonradiating upper epigastric/lower chest pain that started just below his xiphoid process and radiated bilaterally across his lower chest/abdomen. No diaphoresis, nausea or vomiting. Was not exertionally related although he had walked around at [employer] that morning. Did not recall any unusual foods, activity issues, came to the emergency department and given his history was admitted overnight for rule out [place] History I have reviewed the patient's past medical history: Yes Medical History: Reports:: Atrial Fibrillation, Chronic Obstructive Pulmonary Disease (COPD), Diabetes Mellitus Type 2, Hyperlipidemia, Hypertension, Valvular Heart Disease (aortic valve replacement) Denies:: Cancer, Diabetes Mellitus Type 1, Internal Pacemaker, MRSA, Seizures *Have you ever received a pneumonia vaccine?: No *Have you received a flu vaccine this season?: No Other Medical History: Reports: Arthritis, Cataracts Laterality Cases: Right: Cataract, Bilateral: Arthroscopy Shoulder Other Surgeries: Yes: Colonoscopy, Open Heart Surgery, Other Valve Replacement (Aortic valve replacement 2009), Other (back surgery - pinched nerve). No: Pacemaker Amputation: No Fractures: No - *Social History Smoking Status: Former smoker # Packs/Day (cigarettes): 1 Smoking End Date: 1999 Alcohol Intake: never Substance Use Type: denies use *Occupational Status:: retired Housing: house Household Members: spouse *Travel in the last 8 weeks: None Family Hx:: Cancer, Heart Attack Review of Systems - Review of Systems Review of systems:: pertinent systems reviewed and negative unless documented below - *Neurologic Denies localized weakness, Denies seizure-like activity Exam Vital signs and Labs for Last 24 Hours: Temp Pulse Resp BP Pulse Ox 98.1 F 96 H 18 122/65 95 11/16/21 07:52 11/16/21 07:52 11/16/21 07:52 11/16/21 07:52 11/16/21 07:52 Laboratory Results - last 24 hr 11/15/21 21:51: WBC 11.3 H, RBC 5.11, Hgb 15.9, Hct 47.5, MCV 93.0, MCH 31.2, MCHC 33.6, RDW 13.5, Plt Count 190, MPV 8.2, Neut % (Auto) 52.8, Lymph % (Auto) 32.2, [place] % (Auto) 5.1, Eos % (Auto) 8.8, Baso % (Auto) 1.1, Neut # (Auto) 6.0, Lymph # (Auto) 3.6, [place] # (Auto) 0.6, Eos # (Auto) 1.0 H, Baso # (Auto) 0.1 11/15/21 21:51: Sodium 138, Potassium 4.3, Chloride 101, Carbon Dioxide 26, Anion Gap 15.3 H, BUN 40 H, Creatinine 1.50 H, Estimated Creat Clear 49, Estimated GFR 45 L, Est GFR ( Amer) 55 L, Glucose 208 H, Calcium 8.9, Total Bilirubin 2.0 H, Direct Bilirubin 0.2, Conjugated Bilirubin 0.0, Indirect Bilirubin 1.8 H, Unconjugated Bilirubin 1.9 H, AST 35, ALT 28, Alkaline Phosphatase 53, Troponin I < 0.01, NT-Pro-B Natriuret Pep 887 H, Total Protein 8.1, Albumin 4.7, TSH 3.72, Thyroxine (T4) 8.5 11/15/21 21:53: SARS-CoV-2 (PCR) Not detected, Influenza A Untype (PCR) Not detected, Influenza Type B (PCR) Not detected 11/16/21 01:00: Troponin I < 0.01 11/16/21 04:15: Sodium 134 L, Potassium 4.9, Chloride 102, Carbon Dioxide 23, Anion Gap 13.9, BUN 46 H, Creatinine 1.60 H, Estimated Creat Clear 45, Estimated GFR 42 L, Est GFR ( Amer) 51 L, Glucose 353 H D, Calcium 8.7, Magnesium 2.0, Troponin I < 0.01 11/16/21 04:15: WBC 8.9, RBC 4.64, Hgb 14.5, Hct 43.8, MCV 94.4 H, MCH 31.2, MCHC 33.1, RDW 13.4, Plt Count 164, MPV 8.4, Neut % (Auto) 85.8 H, Lymph % (Auto) 11.7, [place] % (Auto) 1.5 L, Eos % (Auto) 0.6, Baso % (Auto) 0.4, Neut # (Auto) 7.6, Lymph # (Auto) 1.0, [place] # (Auto) 0.1, Eos # (Auto) 0.1, Baso # (Auto) 0.0, Total Co
== END 2021-11-16 09:15 | disposition home or self-care (01) ==
LOC: ER 22:09 → 2ND 23:21
PROVIDERS: Admitting Provider Internal Medicine Adolescent Medicine; Emergency Provider Emergency Medicine; PCP Internal Medicine Adolescent Medicine; Visit Provider Internal Medicine Adolescent Medicine
DX: I25.119 Atherosclerotic heart disease of native coronary artery with unspecified angina pectoris (principal); F03.90 Unspecified dementia, unspecified severity, without behavioral disturbance, psychotic disturbance, mood disturbance, and anxiety; Z87.891 Personal history of nicotine dependence; E87.6 Hypokalemia; Z79.01 Long term (current) use of anticoagulants; E78.5 Hyperlipidemia, unspecified; J44.9 Chronic obstructive pulmonary disease, unspecified; Z95.2 Presence of prosthetic heart valve; I12.9 Hypertensive chronic kidney disease with stage 1 through stage 4 chronic kidney disease, or unspecified chronic kidney disease; N18.9 Chronic kidney disease, unspecified
CPT/HCPCS: 36415; 71046; 71275; 80048; 80076; 82962; 83735; 83880; 84436; 84443; 84484; 85007; 85025; 93005; 93306; 96365; 96374; 96375; C9803; G0378; Q9967; U0003; U0005

== ENCOUNTER → 2022-10-05 12:14 | Outpatient (CLI) | payer MEDICARE, SELFPAY ==
--- NOTE | 2022-10-05 12:21 | XR_ITS ---
FINAL REPORT CLINICAL HISTORY: SOB COMPARISON: 11/15/2021 FINDINGS: PA and lateral views of the chest were obtained. The cardiac silhouette is within normal limits. The patient is status post median sternotomy. There are improved interstitial opacities. The lungs are clear. There is no pleural effusion or pneumothorax. No acute osseous abnormality is identified. IMPRESSION: No radiographic evidence of acute cardiac or pulmonary disease. Reviewed, Interpreted and Dictated by Annette Avalos MD Transcribed by Annabelle Kay Authenticated and [facility]
== END ==
PROVIDERS: PCP Internal Medicine Adolescent Medicine; Visit Provider Internal Medicine Adolescent Medicine
DX: R06.02 Shortness of breath (principal)
CPT/HCPCS: 71046

== ENCOUNTER 2022-12-22 08:00 | Outpatient (RCR) | payer MEDICARE, SELFPAY ==
--- NOTE | 2022-12-06 11:54 | HMH.PTOPEV ---
PT Outpatient Evaluation Rehab PT Outpatient Evaluation Start: 12/06/22 10:57 Freq: Status: Active Protocol: Document 12/06/22 11:42 PHOLEXA (Rec: 12/06/22 11:54 PHORBIENVENIDO [id number]) E-signed By Joaquim Srinivasan, PT Outpatient Therapy Subjective History Subjective History This is the initial PT eval for Jacob Sparks 77 yowm who presents with c/o pain in R side low back x ~ 1 mo with insidious onset of symptoms. He reports hx of prior lumbar surgery ~ 2 yrs ago, I don't know what they did, but I had a pinched nerve in my back. He reports no c/o pain or numbness/tingling in his LE. He reports sharp pain that gets worse intermittently. Manual traction of the lumbar spine in supine increased his pain. He reports hx of COPD and cardiac valve replacement, but no pacemaker. Chief Complaint Pain,Stiff Symptom Type Ache,Sharp Symptoms Relieved By Rest/Positioning Symptoms Aggravated By Standing,Walking Prior Functional Limitations None Current Functional Limitations Lifting,Standing,Walking, Bending/Stooping Symptom Description Constant but Variable Level of pain today (0-10) 5 Pain scale - at its worst (0-10) 10 Lumbopelvic Eval Posture Lumbar Spine Posture Standing Position Flattened Palapation tenderness right lumbar spinal tenderness Yes: 2/4 paraspinal tenderness Yes: 2/4 Accessory Movement L-spine Vertebrae Accessory Movements [facility] [place] that [place] Symptoms L2 bilateral L3 bilateral L4 bilateral L5 bilateral S1 bilateral Range of Motion Lumbar Spine Active Flexion Range of 0-40 Motion (degrees) Lumbar Spine Active Extension Range of 0-10 Motion (degrees) Left Lumbar Spine Lateral Flexion Active 0-10 Range of Motion (degrees) Right Lumbar Spine Lateral Flexion 0-10 Active Range of Motion (degrees) Manual Muscle Test Bilateral Knee Extension Strength Grade 5 Normal Knee Flexion Strength Grade 5 Normal Hip Flexion Strength Grade 5 Normal Hip Abduction Strength Grade 5 Normal Hip Adduction Strength Grade 5 Normal Extensor Halluc
== END 2022-12-22 08:05 | disposition home or self-care (01) ==
LOC: PT 08:00
PROVIDERS: PCP Internal Medicine Adolescent Medicine; Visit Provider Nurse Practitioner Family
DX: M54.42 Lumbago with sciatica, left side (principal); M54.41 Lumbago with sciatica, right side
CPT/HCPCS: 97010; 97014; 97110; 97163; G0283

== ENCOUNTER 2023-04-12 08:29 | Emergency (ER) | payer MEDICARE, SELFPAY ==
[2023-04-12 08:35] VITALS: BP 135/76; PULSE 75; RESP 20; TEMP 36.3; O2SAT 98; BMI 23.7
[2023-04-12 08:38] VITALS: BP 135/76; PULSE 76; O2SAT 98
--- NOTE | 2023-04-12 08:39 | XR_ITS ---
FINAL REPORT CLINICAL HISTORY: accident yesterday FINDINGS: 3 views show no evidence of acute displaced fracture or dislocation of the visualized bony architecture. Narrowing of the acromiohumeral interval which may be seen with rotator cuff disease. Superior subluxation of the humerus. IMPRESSION: No acute fracture Reviewed, Interpreted and Dictated by Lebron Luna MD Transcribed by Rick Horner Authenticated and [facility]
--- NOTE | 2023-04-12 08:50 | CT_ITS ---
FINAL REPORT CLINICAL HISTORY: fall, pain FINDINGS: CT LUMBAR SPINE TECHNIQUE: Thin section axial CT with sagittal and coronal reconstructions FINDINGS: No fracture is present. Mild retrolisthesis in the lower lumbar spine at multiple levels. Degenerative disc disease most pronounced at L3-L4. Well-circumscribed lucent lesion in the L4 spinous process could be arising from the left L3-L4 facet joint. Degenerative canal stenosis at multiple levels. IMPRESSION: No acute fracture. Degenerative canal stenosis with lucent lesion in the L4 spinous process. Recommend MRI lumbar spine. This study was performed using automated techniques to achieve radiation exposure as low as reasonably achievable Reviewed, Interpreted and Dictated by Lebron Luna MD Transcribed by Rick Horner Authenticated and [facility]
--- NOTE | 2023-04-12 08:50 | CT_ITS ---
FINAL REPORT TECHNIQUE: Noncontrast exam CLINICAL HISTORY: fall, pain FINDINGS: Moderate atrophy and chronic microvascular change. Ventricles are normal. There is no hemorrhage. No mass effect is seen. No extra-axial collection. Bone windows show no evidence of fracture. Bilateral ethmoid sinusitis. IMPRESSION: No acute findings Reviewed, Interpreted and Dictated by Lebron Luna MD Transcribed by Rick Horner Authenticated and [facility]
--- NOTE | 2023-04-12 08:50 | CT_ITS ---
FINAL REPORT TECHNIQUE: Thin section axial CT with sagittal reconstruction without contrast CLINICAL HISTORY: fall, pain FINDINGS: No fracture is seen. Mild retrolisthesis at C4-C5. Minimal anterolisthesis at C7-T1. Subluxation is likely degenerative. Advanced degenerative disease most pronounced at C4-C5. IMPRESSION: No acute fracture. Advanced degenerative disease. Reviewed, Interpreted and Dictated by Lebron Luna MD Transcribed by Rick Horner Authenticated and [facility]
--- NOTE | 2023-04-12 08:50 | XR_ITS ---
FINAL REPORT CLINICAL HISTORY: fall, pain FINDINGS: Two views show no evidence of an acute, displaced fracture or dislocation of the visualized bony architecture. The joint spaces appear normal. Osteopenia is noted. IMPRESSION: No acute fracture. Reviewed, Interpreted and Dictated by Lebron Luna MD Transcribed by Rick Horner Authenticated and [facility]
--- NOTE | 2023-04-12 08:50 | XR_ITS ---
FINAL REPORT TECHNIQUE: 2 view chest CLINICAL HISTORY: fall, pain COMPARISON: September 2022 FINDINGS: Chronic changes in the lung bases. No acute pulmonary opacities present. There is no evidence of effusion or pneumothorax. There is evidence of prior median sternotomy, presumably from CABG. Otherwise mediastinum is unremarkable. The heart is normal in size. IMPRESSION: Unremarkable chest, status post CABG. Reviewed, Interpreted and Dictated by Lebron Luna MD Transcribed by Rick Horner Authenticated and [facility]
--- NOTE | 2023-04-12 08:50 | CT_ITS ---
FINAL REPORT CLINICAL HISTORY: fall, pain FINDINGS: CT THORACIC SPINE TECHNIQUE: Thin section axial CT with sagittal and coronal reconstructions FINDINGS: No fracture is present. Alignment is normal. No bony canal stenosis is seen. Mild diffuse degenerative disc disease. 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 IMPRESSION: Negative CT evaluation of the thoracic spine for acute bony injury. Reviewed, Interpreted and Dictated by Lebron Luna MD Transcribed by Rick Horner Authenticated and [facility]
--- NOTE | 2023-04-12 08:52 | HMH.EDGENADL ---
Discharge Plan Disposition Patient Disposition: Home, Self-Care Condition: Good Prescriptions Prescriptions: New methocarbamol 750 mg tablet 750 mg PO Q8H PRN (Reason: pain) Qty: 20 0RF No Action levothyroxine 50 mcg tablet 50 mcg PO DAILY potassium chloride 10 mEq tablet extended release 10 meq PO DAILY metoprolol succinate 50 mg tablet extended release 24 hr 50 mg PO DAILY Patient Comments: TAKE 1 TABLET BY MOUTH EVERY DAY furosemide 40 mg tablet 40 mg PO DAILY dapaglifloz propaned-metformin 10-1,000 mg tablet, IR - ER, biphasic 24hr 1 tab PO DAILY Patient Comments: TAKE 1 TABLET BY MOUTH EVERY DAY IN THE MORNING Trulicity 1.5 mg/0.5 mL pen injector 1.5 mg SQ WEEKLY gabapentin 100 MG capsule 100 mg PO TID Patient Comments: TAKE 1 CAPSULE BY MOUTH THREE TIMES A DAY FOR PAIN aspirin 81 MG tablet,delayed release (DR/EC) 81 mg PO DAILY apixaban 5 MG tablet 5 mg PO BID omeprazole 40 MG capsule,delayed release(DR/EC) 40 mg PO DAILY atorvastatin 40 MG tablet 40 mg PO HS acetaminophen 325 MG tablet 650 mg PO DAILY cetirizine 10 MG capsule 10 mg PO DAILY Trelegy Ellipta 100-62.5-25 mcg Blister With Device 1 inh INHALATION DAILY Referrals Follow up/Referrals: Philip Velarde MD [Primary Care Provider] - See instructions Activity Restrictions/Add. Instructions Additional Instructions/Restrictions: You were evaluated in the emergency department today. Please chart picker the prescription for the muscle relaxer at the pharmacy and take as needed for pain. You may also take Tylenol as needed. Follow-up with your primary care provider over the next 3 days. It is noted that you do have an abnormal lesion to the lumbar spine at L4. For this, I recommend further follow-up with your primary care provider, as they may want to order an MRI. Return to the emergency department for new or worsening symptoms, such as numbness, tingling, urinary or bowel incontinence, difficulty walking, or other concerns. Clinical Impressions Clinical Impression: Lesion of lumbar spine Fall Qualifiers: Encounter type: initial encounter Qualified Code(s): W19.XXXA - Unspecified fall, initial encounter Right shoulder strain Qualifiers: Encounter type: initial encounter Qualified Code(s): S46.911A - Strain of unspecified muscle, fascia and tendon at shoulder and upper arm level, right arm, initial encounter Instructions Patient Instructions: DI for Acute Pain -- Adult, DI for Shoulder Pain Discharge ED Provider: Kaela Arevalo General Adult HPI General Chief complaint: PAIN Stated complaint: AO7/@home pain in Rt shoulder Time Seen by Provider: 04/12/23 08:37 Mode of Arrival: Ambulatory Source of Information: Patient Limitations: No Limitations Description of Symptoms (Recalled from ER Triage Doc. by RN): pt to ed c/o right shoulder pain. pt states he tripped yesterday and fell into a car. pt denies hitting his head. History of Present Illness HPI narrative: This patient is a 77-year-old male with a history of A-fib on Eliquis, CHF, COPD, and type 2 diabetes presenting to the emergency department for evaluation with concern for right shoulder pain and back pain after a fall into a car yesterday. Patient states that he stumbled headfirst into the car and right shoulder. He complains of shoulder pain, back pain, and back pain as a result. Any sort of movement makes it worse. He denies any head injury or loss of consciousness, but he does take Eliquis. He denies any new numbness or tingling. He was well prior to this. Related Data Home Medications Medication Instructions Recorded Confirmed aspirin 81 mg tablet,delayed 81 mg PO DAILY heart health 10/07/19 04/12/23 release gabapentin 100 mg capsule 100 mg PO TID Pain 10/07/19 04/12/23 furosemide 40 mg tablet 40 mg PO DAILY Fluid 02/26/20 04/12/23 levothyroxine 50 mcg t
[2023-04-12 09:30] VITALS: BP 122/74; PULSE 77; O2SAT 95
--- NOTE | 2023-04-12 09:52 | PC.NURSE ---
contacted rad to check on status of xray, states a preliminary result is available and will send it down
[2023-04-12 10:11] VITALS: BP 115/66; PULSE 74; RESP 20; TEMP 36.6; O2SAT 97
== END 2023-04-12 10:12 | disposition home or self-care (01) ==
PROVIDERS: Emergency Provider Emergency Medicine; PCP Internal Medicine Adolescent Medicine
DX: S46.911A Strain of unspecified muscle, fascia and tendon at shoulder and upper arm level, right arm, initial encounter (principal); S34.104A Unspecified injury to L4 level of lumbar spinal cord, initial encounter; I48.91 Unspecified atrial fibrillation; I50.9 Heart failure, unspecified; E11.9 Type 2 diabetes mellitus without complications; J44.9 Chronic obstructive pulmonary disease, unspecified; V48.4XXA Person boarding or alighting a car injured in noncollision transport accident, initial encounter; Z87.891 Personal history of nicotine dependence
CPT/HCPCS: 70450; 71046; 72125; 72128; 72131; 73030; 73060; 99285

== ENCOUNTER → 2023-04-22 08:23 | Outpatient (CLI) | payer MEDICARE, SELFPAY ==
--- NOTE | 2023-04-22 08:26 | MR_ITS ---
FINAL REPORT CLINICAL HISTORY: MASS OF SPINE FOUND ON LUMBAR CT 04/12/23, FALL 04/11 LOWER BACK PAIN COMPARISON: CT lumbar spine 04/12/2023 FINDINGS: Multiplanar MR imaging of the lumbar spine was performed without contrast. On the sagittal T2-weighted images, disc degeneration is seen throughout. There is mild retrolisthesis of L3 on L4 and L4 on L5. There are endplate changes at multiple levels. Several hemangiomas are noted. The conus has an unremarkable appearance. L1-2: Annular disc bulge, facet arthropathy, and osteophytes. Mild bilateral neuroforaminal narrowing. L2-3: Annular disc bulge, facet arthropathy, and osteophytes. Small right foraminal disc protrusion. Mild bilateral neuroforaminal narrowing. L3-4: Annular disc bulge, facet arthropathy, and osteophytes. Severe bilateral neuroforaminal narrowing. Lytic focus in the L4 spinous process seen on prior CT scan is not as well seen on this study and is favored to represent chronic erosion rather than mass. L4-5: Annular disc bulge and facet arthropathy. Severe bilateral neuroforaminal narrowing. L5-S1: Annular disc bulge, facet arthropathy, and osteophytes. Moderate right and severe left neuroforaminal narrowing. IMPRESSION: Multilevel degenerative disc disease and spondylosis as described with disc protrusion at L2-3. Lytic focus seen on prior CT scan not as well seen and favored to represent chronic erosion rather than mass. Reviewed, Interpreted and Dictated by Sammy Benoit III, MD Transcribed by Fabi Nichols Authenticated and [facility]
== END ==
PROVIDERS: PCP Internal Medicine Adolescent Medicine; Visit Provider Internal Medicine Adolescent Medicine
DX: M89.8X8 Other specified disorders of bone, other site (principal)
CPT/HCPCS: 72148; 76376

== ENCOUNTER 2024-05-30 10:43 | Outpatient (CLI) | payer MEDICARE, SELFPAY ==
--- NOTE | 2024-05-30 | XR_ITS ---
FINAL REPORT CLINICAL HISTORY: Right foot pain COMPARISON: 12/25/2020 FINDINGS: RIGHT FOOT 3 views of the right foot were obtained. There is no acute fracture or dislocation. There are degenerative changes noted, worst at the 1st MTP. There is a plantar calcaneal spur. Vascular calcifications are present. IMPRESSION: Degenerative changes without acute bony abnormality. Plantar calcaneal spur. Reviewed, Interpreted and Dictated by Sammy Benoit III, MD Transcribed by Fabi Nichols Authenticated and [facility]
== END 2024-05-30 23:59 | disposition home or self-care (01) ==
LOC: RAD 10:46
PROVIDERS: PCP Internal Medicine Adolescent Medicine; Visit Provider Internal Medicine Adolescent Medicine
DX: M79.671 Pain in right foot (principal)
CPT/HCPCS: 73630

== ENCOUNTER 2024-09-26 10:31 | Outpatient (CLI) | payer MEDICARE, SELFPAY ==
--- NOTE | 2024-09-26 10:38 | XR_ITS ---
FINAL REPORT CLINICAL HISTORY: Foot Pain COMPARISON: None FINDINGS: RIGHT FOOT 3 views of the right foot were obtained. There is no acute fracture or dislocation. There are small plantar spurs. Mild to moderate narrowing is noted of the first MTP joint. There is subchondral sclerosis. Soft tissues are unremarkable. IMPRESSION: Osteoarthritic changes without acute bony abnormality. Reviewed, Interpreted and Dictated by Ross Ybarra MD Transcribed by Fabi Nichols Authenticated and [facility]
--- NOTE | 2024-09-26 10:38 | XR_ITS ---
FINAL REPORT CLINICAL HISTORY: Foot Pain COMPARISON: None FINDINGS: LEFT FOOT Three views of the left foot demonstrate no acute fracture or dislocation. Small plantar spur is noted. There are hypertrophic changes of osteoarthritis at the first MTP joint. The soft tissues are unremarkable. IMPRESSION: Osteoarthritis changes without acute bony abnormality. Reviewed, Interpreted and Dictated by Ross Ybarra MD Transcribed by Fabi Nichols Authenticated and [facility]
== END 2024-09-26 23:59 | disposition home or self-care (01) ==
LOC: RAD 10:35
PROVIDERS: PCP Internal Medicine Adolescent Medicine; Visit Provider Nurse Practitioner
DX: M79.671 Pain in right foot (principal); M79.672 Pain in left foot
CPT/HCPCS: 73630

== ENCOUNTER 2024-10-31 11:57 | Outpatient (CLI) | payer MEDICARE, SELFPAY ==
--- NOTE | 2024-10-31 12:21 | MR_ITS ---
FINAL REPORT CLINICAL HISTORY: Foot Pain lateral pain nki FINDINGS: Multiplanar MR imaging of the right foot was performed with and without contrast. There is subchondral T2 abnormality in the distal cuboid, favor degenerative. There is no evidence of fracture or marrow edema. There are no findings of osteomyelitis. There is multijoint degenerative disease. No bony mass is identified. The flexor and extensor tendons are intact. Lisfranc articulation is intact. Lisfranc ligament is intact. Plantar fascia is normal size and intensity. No fluid collections are identified. The intrinsic muscles are unremarkable. There are no areas of abnormal contrast-enhancement. IMPRESSION: Mild degenerative disease without acute osseous abnormality or evidence of osteomyelitis. Reviewed, Interpreted and Dictated by Annette Avalos MD Transcribed by Carmel Tarango Authenticated and [facility]
[2024-10-31 12:23] LABS: Basophils # 0.1 K/mm3 (0-0.2); Basophils % 0.9 % (0.1-2.0); Eosinophils # 1.1 K/mm3 (0.0-0.4); Eosinophils % 9.7 % (0.1-12.0); Hematocrit 42.9 % (42.0-52.0); Hemoglobin 13.7 g/dL (14.1-18.0); Lymphocytes # 2.6 K/mm3 (0.7-4.5); Lymphocytes % 23.8 % (10-50); Mean Corpuscular HGB Conc 31.9 g/dL (31.8-35.4); Mean Corpuscular Hemoglobin 28.6 pg (27.0-31.2); Mean Corpuscular Volume 89.6 fl (80-94); Mean Platelet Volume 10.7 fl (7.4-10.4); Monocytes % 8.7 % (1.7-9.3); Neutrophils # 6.3 K/mm3 (1.8-7.8); Neutrophils % 56.6 % (37.0-80.0); Platelet Count 197 K/mm3 (142-424); Red Blood Count 4.79 M/mm3 (4.60-6.20); Red Cell Distribution Width 13.9 % (11.5-17.5); White Blood Count 11.1 K/mm3 (4.8-10.8)
[2024-10-31 12:37] LABS: Blood Urea Nitrogen 26 mg/dl (9-20); Estimated Glomerular Filt Rate 45 ml/min (>60); GFR (African American) 54 ML/MIN (>60)
[2024-10-31] MEDS: GADOTERIDOL INJ 20ML SYRINGE 17 ML IV (13:28)
[2024-10-31] MEDS: SODIUM CHLORIDE 0.9% 10ML SYR (RAD ONLY) 10 ML IV (13:28)
== END 2024-10-31 23:59 | disposition home or self-care (01) ==
LOC: RAD 11:59
PROVIDERS: PCP Internal Medicine Adolescent Medicine; Visit Provider Nurse Practitioner
DX: Z01.812 Encounter for preprocedural laboratory examination (principal); M79.671 Pain in right foot
CPT/HCPCS: 36415; 73720; 82565; 84520; 85025; A9576